=== PATIENT | female | born 1975 | race Caucasian/White ===

== ENCOUNTER 2020-04-13 16:51 | Outpatient (CLI) | payer OTHER, SELFPAY ==
--- NOTE | ~2020-04-13 | MM_ITS ---
EXAMINATION: MM screening jose g BI w patricia HISTORY: Screening mammogram TECHNIQUE: Craniocaudal and mediolateral oblique 3-D tomosynthesis images were obtained and synthetic 2-D images were generated. CAD analysis was submitted and interpreted. COMPARISON: 03/29/2019, 04/04/2018, 03/05/2017 bilateral digital screening mammogram examinations BREAST PARENCHYMAL COMPOSITION: There are scattered areas of fibroglandular density. FINDINGS: Scattered bilateral benign calcifications. There is no evidence of suspicious mass, calcifi cation, or architectural distortion to suggest malignancy in either breast. There has been no suspici ous interval change. IMPRESSION: 1. No mammographic evidence of malignancy. 2. Recommend routine screening mammography in one year. BI-RADS Category 2: Benign finding(s). Reviewed, dictated and finalized at location A. LAB
== END 2020-04-13 16:52 | disposition home or self-care (01) ==
LOC: ANHIMG 16:55
PROVIDERS: PCP Family Medicine; Visit Provider Obstetrics & Gynecology
DX: Z12.31 Encounter for screening mammogram for malignant neoplasm of breast (principal)
CPT/HCPCS: 77063; 77067

== ENCOUNTER 2021-05-15 07:38 | Outpatient (CLI) | payer OTHER, SELFPAY ==
--- NOTE | ~2021-05-15 | MM_ITS ---
EXAMINATION: MM screening [facility] BI w patricia HISTORY: Screening mammogram TECHNIQUE: Craniocaudal and mediolateral oblique 3-D tomosynthesis images were obtained and synthetic 2-D images were generated. CAD analysis was submitted and interpreted. COMPARISON: 04/13/2020, 03/29/2019 BREAST PARENCHYMAL COMPOSITION: The breasts are heterogeneously dense, which may obscure small masses . FINDINGS: There is no evidence of suspicious mass, calcification, or architectural distortion to sugg est malignancy in either breast. There has been no suspicious interval change. IMPRESSION: 1. No mammographic evidence of malignancy. 2. Recommend routine screening mammography in one year. BI-RADS Category 1: Negative Reviewed, dictated and finalized at location A. [employer]
== END 2021-05-15 07:39 | disposition home or self-care (01) ==
LOC: ANHIMG 07:40
PROVIDERS: PCP Family Medicine; Visit Provider Obstetrics & Gynecology
DX: Z12.31 Encounter for screening mammogram for malignant neoplasm of breast (principal)
CPT/HCPCS: 77063; 77067

== ENCOUNTER 2021-07-27 01:09 | Day surgery (SDC) | payer OTHER, SELFPAY ==
[2021-07-16 15:00] VITALS: BMI 25.8
[2021-07-27 06:29] VITALS: BP 101/64; PULSE 75; RESP 20; TEMP 36.3; O2SAT 100; BMI 22.3
[2021-07-27] MEDS: LACTATED RINGERS 1,000 ML 150 ML IV CONT (06:42)
--- NOTE | 2021-07-27 06:49 | P.PNAN_ITS ---
Anes - Initial Pre Proc Eval Procedure: Operation Date: 07/27/21 07:30 Proposed Procedures p Screening Colonoscopy - Carlos Henderson MD Date/Time: 07/27/21 06:49 Surgeon: Carlos Henderson MD Pre Op Diagnosis: neoplasm screening Patient Data Age: 46 Gender: F Height: 1.52 m Weight: 51.9 kg Last Vital Signs Temp 36.3 C L 07/27/21 06:29 Pulse 75 07/27/21 06:29 Resp 20 07/27/21 06:29 BP 101/64 07/27/21 06:29 Pulse Ox 100 07/27/21 06:29 Allergies Allergy/AdvReac Type Severity Reaction Status Date / Time No Known Allergies Allergy Unknown Verified 07/27/21 06:27 Home Medications Medication Instructions Recorded Confirmed Type bupropion HCl 150 mg 24 hr tablet, 150 mg PO QAM 04/09/19 07/16/21 History extended release sertraline 100 mg tablet 150 mg PO DAILY tablet 04/09/19 07/16/21 History topiramate 50 mg tablet 50 mg PO DAILY #90 tablet 04/03/21 07/16/21 Rx sumatriptan succinate 100 mg tablet See Rx Instructions .ROUTE 04/20/21 07/16/21 Rx .COMPLEX #15 tablet simvastatin 5 mg tablet See Rx Instructions .ROUTE 06/29/21 07/16/21 Rx .COMPLEX #90 tablet amitriptyline 25 mg PO HS 07/16/21 07/16/21 History Patient hx anesthesia problems: none Family hx anesthesia problems: none Results Review: All pre-operative results and documents have been reviewed as p art of the pre-operative evaluation. [facility] Surgical History Surgical History (Updated 07/27/21 @ 06:52 by Jose Marrero MD) History of section History of tonsillectomy (~1983) removed History of total hip arthroplasty Family History Family History Mother Diabetes mellitus Family history of obesity Depression Father Family history of cardiovascular disease Hypertension Family history of alcoholism Grandparent Cerebrovascular accident Malignant neoplasm of prostate Family history of malignant neoplasm of cervix Family history of malignant neoplasm of ovary Social History Social History Smoking status: Current every day smoker Alcohol intake: never Living arrangements: with family Spiritual care concerns: No Anes - Eval Final PreProcedure Day of Procedure 07/27/21 06:49 Patient weight: normal Heart: regular rate and rhythm Lungs: clear to auscultation Airway: Mallampati scale class II Neurological: alert and oriented Last oral intake: >/= 8 hours ASA classification: II Emergent: no Anesthetic plan: proceed Anesthesia type and monitoring: general GIVS Results Review: All pre-operative results and documents have been reviewed as part of the pre-operative evaluation. Informed Consent: The patient's anesthetic plan and its attendant risks and benefits were discussed with the patient/family/POA. Questions were solicited and answers provided to the satisfaction of the patient/family/POA.
--- NOTE | 2021-07-27 07:23 | PM.HPGS ---
History of Present Illness History of Present Illness Consent: Risks, benefits, and alternatives have been discussed and questions answered. Patient agrees to proceed with procedure. Chief complaint: neoplasm screening Narrative: Adalgisa Parikh is a 46 year old female here for first screening colonoscopy Review of Systems Constitutional: Constitutional: Denies headache(s) and Denies weakness Eyes: Eyes: Denies blurry vision ENT: Reports Normal hearing present, Denies headache(s) and Denies neck pain Cardiovascular: Cardiovascular: Denies chest pain and Denies dyspnea Respiratory: Respiratory: Denies dyspnea Gastrointestinal: Gastrointestinal: Reports no additional gastrointestinal complaints Genitourinary: Genitourinary: Denies dysuria Musculoskeletal: Musculoskeletal: Denies neck pain Integumentary/Breasts: Skin/Breast: Denies dry skin Neurologic: Reports Normal hearing present, Denies headache(s) and Denies weakness Psychiatric: Psychiatric: Denies anxiety Endocrine: Endocrine: Denies change in body appearance Hematologic/Lymphatic: Hematologic/Lymphatic: Denies easy bleeding Allergic/Immunologic: Allergic/Immunologic: Denies urticaria PMFSH Surgical History Surgical History (Updated 07/27/21 @ 06:52 by Jose Marrero MD) History of section History of tonsillectomy (~1983) removed History of total hip arthroplasty Family History Family History Mother Diabetes mellitus Family history of obesity Depression Father Family history of cardiovascular disease Hypertension Family history of alcoholism Grandparent Cerebrovascular accident Malignant neoplasm of prostate Family history of malignant neoplasm of cervix Family history of malignant neoplasm of ovary Social History Social History Smoking status: Current every day smoker Alcohol intake: never Living arrangements: with family Spiritual care concerns: No Meds Home Medications and Allergies Home Medications Medication Instructions Recorded Confirmed Type bupropion HCl 150 mg 24 hr tablet, 150 mg PO QAM 04/09/19 07/16/21 History extended release sertraline 100 mg tablet 150 mg PO DAILY tablet 04/09/19 07/16/21 History topiramate 50 mg tablet 50 mg PO DAILY #90 tablet 04/03/21 07/16/21 Rx sumatriptan succinate 100 mg tablet See Rx Instructions .ROUTE 04/20/21 07/16/21 Rx .COMPLEX #15 tablet simvastatin 5 mg tablet See Rx Instructions .ROUTE 06/29/21 07/16/21 Rx .COMPLEX #90 tablet amitriptyline 25 mg PO HS 07/16/21 07/16/21 History Allergies Allergy/AdvReac Type Severity Reaction Status Date / Time No Known Allergies Allergy Unknown Verified 07/27/21 06:27 Vital Signs Vital Signs - 24 hr 07/27/21 06:29 Temperature 97.3 F L Pulse Rate 75 Respiratory Rate 20 Blood Pressure 101/64 Pulse Oximetry 100 Exam Const: General: comfortable and no acute distress HENMT: General nose exam: Normal nares present Eyes: General: appearance normal, both eyes and all related structures Neck: Neck: no JVD Resp: Auscultation: clear to auscultation bilaterally Cardio: Rate: regular rate Rhythm: regular rhythm GI: Inspection: non-distended GI Palp: Yes Soft to palpation Skin: General skin exam: normal color Neuro: General: gait normal Speech: normal speech Extrem: General: normal to inspection Psych: Mental Status: mental status grossly normal Assessment and Plan Assessment and plan (1) Screening for colon cancer: Code(s): Z12.11 - Encounter for screening for malignant neoplasm of colon Status: Acute Assessment and Plan: colonoscopy
[2021-07-27 07:44] VITALS: BP 128/105; PULSE 64; RESP 11; O2SAT 98
[2021-07-27 07:54] VITALS: BP 87/52; PULSE 68; RESP 12; O2SAT 98
[2021-07-27 08:04] VITALS: BP 109/69; PULSE 60; RESP 21; O2SAT 100
== END 2021-07-27 08:15 | disposition home or self-care (01) ==
PROVIDERS: PCP Family Medicine; Visit Provider Internal Medicine Gastroenterology
PROC: 0DJD8ZZ Inspection of Lower Intestinal Tract, Via Natural or Artificial Opening Endoscopic (ICD-10-PCS; CPT 45378; principal; 2021-07-27 07:30)
DX: Z12.11 Encounter for screening for malignant neoplasm of colon (principal); K64.8 Other hemorrhoids; F17.200 Nicotine dependence, unspecified, uncomplicated
CPT/HCPCS: 45378; J2704; J7120

== ENCOUNTER 2021-10-02 15:25 | Outpatient (CLI) | payer OTHER, SELFPAY ==
--- NOTE | ~2021-10-02 | XR_ITS ---
EXAM: XR knee RT min 4V DATE: 10/02/2021 16:03 HISTORY: M25.561 - Pain in right knee . COMPARISON: None available. FINDINGS: Normal mineralization. No fracture or dislocation. No lytic or blastic lesion. Mild medial joint space narrowing. No erosion or periosteal change. Soft tissues within normal limits. IMPRESSION: Mild osteoarthritic change in the right knee. Reviewed, dictated and finalized at location K.
--- NOTE | ~2021-10-02 | XR_ITS ---
EXAM: XR lumbar spine min 4V DATE: 10/02/2021 16:03 HISTORY: M25.561 - RADIATING BACK PAIN DOWN RT LEG . COMPARISON: 02/08/2019. FINDINGS: IUD. 5 nonrib-bearing lumbar-type vertebral bodies. Pedicles intact. Normal vertebral body alignment. Vertebral body heights preserved. Severe disc space narrowing at L5-S1, with vacuum phenom enon. Bilateral pars defects at L5. No fracture or dislocation. IMPRESSION: Bilateral L5 pars defect. Severe degenerative disc disease at L5-S1. Reviewed, dictated and finalized at location K. IMPRESSION: Bilateral L5 pars defect. Severe degenerative disc disease at L5-S1 .
--- NOTE | ~2021-10-02 | US_ITS ---
EXAMINATION: US venous doppler LE RT DATE: 10/02/2021 15:50 INDICATION: M25.561 - Pain in right knee . TECHNIQUE: Grayscale images without and with compression and Doppler images of the right lower extrem ity veins were obtained. COMPARISON: None FINDINGS: The right common femoral vein, profunda (deep) femoral vein, femoral vein, popliteal vein, peroneal v ein, posterior tibial veins, gastrocnemius vein, and greater saphenous vein are patent. IMPRESSION: 1. Patent right lower extremity veins. No evidence of deep venous thrombosis. Reviewed, dictated and finalized at location K.
== END 2021-10-02 15:26 | disposition home or self-care (01) ==
PROVIDERS: PCP Family Medicine; Visit Provider Family Medicine
DX: M51.37 Other intervertebral disc degeneration, lumbosacral region (principal); M17.11 Unilateral primary osteoarthritis, right knee
CPT/HCPCS: 72110; 73564; 93971

== ENCOUNTER 2022-07-30 16:17 | Outpatient (CLI) | payer OTHER, SELFPAY ==
--- NOTE | ~2022-07-30 | MM_ITS ---
EXAMINATION: MM screening jose g BI w patricia HISTORY: Screening mammogram TECHNIQUE: Craniocaudal and mediolateral oblique 3-D tomosynthesis images were obtained and synthetic 2-D images were generated. CAD analysis was submitted and interpreted. COMPARISON: 05/15/2021, 04/13/2020, 03/29/2019 BREAST PARENCHYMAL COMPOSITION:The breasts are heterogeneously dense, which may obscure small masses. FINDINGS: No suspicious mass, calcification, or architectural distortion are identified in either césar ast to suggest malignancy. There has been no suspicious interval change. IMPRESSION: No mammographic evidence of malignancy. Recommend routine screening mammography in one year. BI-RADS Category 1: Negative Reviewed, dictated and finalized at location .
== END 2022-07-30 16:18 | disposition home or self-care (01) ==
PROVIDERS: PCP Family Medicine; Visit Provider Obstetrics & Gynecology
DX: Z12.31 Encounter for screening mammogram for malignant neoplasm of breast (principal)
CPT/HCPCS: 77063; 77067

== ENCOUNTER → 2022-09-10 15:37 | Outpatient (CLI) | payer OTHER, SELFPAY ==
--- NOTE | ~2022-09-10 | XR_ITS ---
EXAM: XR cervical spine min 6V DATE: 09/10/2022 15:55 HISTORY: R51.9 - Headache, unspecified . COMPARISON: 02/08/2019. FINDINGS: Craniocervical association and atlantoaxial joint are aligned. No prevertebral soft tissue swelling. Trace 1 mm retrolisthesis at C4-5, that transitions to a 1 mm anterolisthesis in flexion. 2 mm retrolisthesis at C5-6 that reduces slightly in flexion. Trace, 1 mm anterolisthesis at C6-7 debra t worsens in flexion and reduces in extension. Moderate disc space narrowing, uncovertebral joint hyp ertrophy, and marginal osteophytosis at C5-6. Mild multilevel facet hypertrophy. IMPRESSION: Multilevel dynamic grade 1 listheses at C4-5 through C6/7. Moderate degenerative disc disease and uncovertebral joint hypertrophy at C5-6. Reviewed, dictated and finalized at location K.
== END ==
PROVIDERS: PCP Family Medicine; Visit Provider Family Medicine
DX: R51.9 Headache, unspecified (principal); M50.322 Other cervical disc degeneration at C5-C6 level
CPT/HCPCS: 72052

== ENCOUNTER 2022-10-04 12:50 | Outpatient (CLI) | payer OTHER, SELFPAY ==
--- NOTE | ~2022-10-04 | MR_ITS ---
EXAMINATION: MR lumbar spine wo/w con DATE: 10/04/2022 14:15 INDICATION: Low back pain, unspecified. TECHNIQUE: Magnetic resonance imaging (MRI) of the lumbar spine was performed without and with 10 mL MultiHance intravenous contrast. COMPARISON: Lumbar spine MRI 04/08/2019 FINDINGS: There is 4 mm retrolisthesis of L5 on S1. Vertebral body heights are normal. There is mildl y decreased disc height at L4-L5 and moderately decreased disc height at L5-S1. The distal spinal cor d signal intensity is normal. The conus medullaris is at L1. The following disc levels are specifical ly discussed: L1-L2: The disc does not extend beyond the endplate margin. There is mild bilateral facet joint osteo arthritis. There is no neural foraminal stenosis. There is no central canal stenosis. L2-L3: The disc does not extend beyond the endplate margin. There is moderate bilateral facet joint o steoarthritis. There is no neural foraminal stenosis. There is no central canal stenosis. L3-L4: The disc does not extend beyond the endplate margin. There is moderate right and severe left f acet joint osteoarthritis. There is no neural foraminal stenosis. There is no central canal stenosis. L4-L5: There is a central extrusion. There is severe bilateral facet joint osteoarthritis. There is m ild bilateral neural foraminal stenosis. There is mild central canal stenosis. L5-S1: The disc is bulging and has an annular fissure. There is mild bilateral facet joint osteoarthr itis. There is mild bilateral neural foraminal stenosis. There is mild central canal stenosis. IMPRESSION: 1. Moderate lower lumbar spondylosis, stable from 04/08/2019. Reviewed, dictated and finalized at location A.
--- NOTE | ~2022-10-04 | MR_ITS ---
EXAMINATION: MR cervical spine wo/w con DATE: 10/04/2022 14:15 INDICATION: Neck pain. TECHNIQUE: Magnetic resonance imaging (MRI) of the cervical spine was performed without and with 10 m L MultiHance intravenous contrast. COMPARISON: Cervical spine radiographs 09/10/2022 FINDINGS: There is 2 mm retrolisthesis of C5 on C6. Vertebral body heights are normal. There is moder ately decreased disc height at C5-C6. The spinal cord signal intensity is normal. The following disc levels are specifically discussed: C2-C3: The disc does not extend beyond the endplate margin. There is no uncovertebral joint osteoarth ritis. There is moderate right and severe left facet joint osteoarthritis. There is mild left neural foraminal stenosis. There is no central canal stenosis. C3-C4: There is a central protrusion. There is no uncovertebral joint osteoarthritis. There is modera te bilateral facet joint osteoarthritis. There is no neural foraminal stenosis. There is no central c anal stenosis. C4-C5: There is a left central extrusion. There is no uncovertebral joint osteoarthritis. There is mi ld bilateral facet joint osteoarthritis. There is no neural foraminal stenosis. There is mild central canal stenosis. C5-C6: The disc is bulging. There is severe bilateral uncovertebral joint osteoarthritis. There is mi ld right facet joint osteoarthritis. There is mild bilateral neural foraminal stenosis. There is mild central canal stenosis. C6-C7: There is a central protrusion. There is mild right and moderate left uncovertebral joint osteo arthritis. There is severe right and moderate left facet joint osteoarthritis. There is mild left cathy ral foraminal stenosis. There is mild central canal stenosis. C7-T1: The disc does not extend beyond the endplate margin. There is no uncovertebral joint osteoarth ritis. There is no facet joint osteoarthritis. There is no neural foraminal stenosis. There is no caio tral canal stenosis. IMPRESSION: 1. Moderate cervical spondylosis, worst at C5-C6. Reviewed, dictated and finalized at location A.
== END 2022-10-04 12:51 ==
PROVIDERS: PCP Family Medicine; Visit Provider Nurse Practitioner
DX: M47.896 Other spondylosis, lumbar region (principal); M47.892 Other spondylosis, cervical region
CPT/HCPCS: 72156; 72158; A9577

== ENCOUNTER 2023-08-26 15:34 | Outpatient (CLI) | payer OTHER, SELFPAY ==
--- NOTE | ~2023-08-26 | MM_ITS ---
EXAMINATION: MM screening jose g BI w patricia HISTORY: Screening TECHNIQUE: Craniocaudal and mediolateral oblique 3-D tomosynthesis images were obtained and synthetic 2-D images were generated. CAD analysis was submitted and interpreted. COMPARISON: Comparison to multiple prior studies sequentially, with oldest reviewed study dated 02/15. BREAST PARENCHYMAL COMPOSITION: Dense: The breasts are heterogeneously dense, which may obscure small masses FINDINGS: There is no evidence of suspicious mass, calcification, or architectural distortion to sugg est malignancy in either breast. There has been no suspicious interval change. IMPRESSION: 1. No mammographic evidence of malignancy. 2. Recommend routine screening mammography in one year. BI-RADS Category 1: Negative Reviewed, dictated and finalized at location B.
== END 2023-08-26 15:35 | disposition home or self-care (01) ==
PROVIDERS: PCP Family Medicine; Visit Provider Obstetrics & Gynecology
DX: Z12.31 Encounter for screening mammogram for malignant neoplasm of breast (principal)
CPT/HCPCS: 77063; 77067

== ENCOUNTER 2023-09-03 09:18 | Outpatient (CLI) | payer OTHER, SELFPAY ==
--- NOTE | ~2023-09-03 | CT_ITS ---
CT brain wo con Ordering provider: Jasmin Javier MD History: 48 years Female with . chronic daily headaches . Comparison: None. Technique: CT of the head without contrast. Radiation reduction technique utilized. DLP is 524.62 mGy . FINDINGS: BRAIN PARENCHYMA AND CSF SPACES: No midline shift, mass effect or hemorrhage. The brain parenchyma a nd CSF spaces are otherwise normal. 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 VISUALIZED PARANASAL SINUSES: Well aerated. MASTOIDS: Well aerated. BONES: The bones appear intact. SOFT TISSUES: Visualized nasopharynx is normal. Superficial soft tissues are normal. IMPRESSION: No acute intracranial findings. Reviewed, dictated and finalized at location A.
== END 2023-09-03 09:19 ==
LOC: MICIMG 09:19
PROVIDERS: PCP Family Medicine; Visit Provider Student in an Organized Health Care Education/Training Program
DX: R51.9 Headache, unspecified (principal)
CPT/HCPCS: 70450

== ENCOUNTER 2023-10-13 15:42 | Outpatient (CLI) | payer OTHER, SELFPAY ==
--- NOTE | ~2023-10-13 | MR_ITS ---
EXAMINATION: MR brain/brain stem wo/w con DATE: 10/13/2023 16:21 INDICATION: Chronic daily headaches TECHNIQUE: Magnetic resonance imaging (MRI) of the brain and brainstem was performed without and with 10 mL Multihance intravenous contrast. Sequences included sagittal and axial T1-weighted SE, axial d iffusion-weighted FS SE, axial T2*-weighted GRE, axial T2-weighted FLAIR, and axial T2-weighted FSE. Postcontrast axial and coronal T1-weighted SE was obtained. Apparent diffusion coefficient (ADC) maps were created. COMPARISON: Head CT dated 09/02/2023 FINDINGS: There are no areas of restricted diffusion to suggest acute infarction. No intracranial hemorrhage or abnormal intracranial mass lesion. There are a few scattered small foci of nonspecific increased T2- weighted signal intensity in the cerebral white matter, predominantly involving the deep and perivent ricular white matter which within normal limits for age and likely sequela of chronic small vessel is chemic disease. There are no intraparenchymal signal abnormalities seen on the other pulse sequences. The ventricles are symmetric and normal in size. There are no abnormal extra-axial fluid collections . Flow voids are seen in the cerebral arteries on the T2-weighted sequences consistent with their exp ected patency. Visualized orbits and soft tissues are unremarkable. There are no areas of abnormal en hancement on the post contrast images. IMPRESSION: 1. Normal for age brain MR with a few scattered small foci of nonspecific white matter T2 hyperintens ity likely sequela of chronic small vessel ischemic disease. Reviewed, dictated and finalized at location A. IMPRESSION: 1. Normal for age brain MR with a few scattered small foci of nonspecific white matter T2 hyperintensity likely sequela of chronic small vessel ischemic disea se.
== END 2023-10-13 15:43 ==
PROVIDERS: PCP Family Medicine; Visit Provider Student in an Organized Health Care Education/Training Program
DX: E34.8 Other specified endocrine disorders (principal); R90.82 White matter disease, unspecified
CPT/HCPCS: 70553; A9577

== ENCOUNTER 2024-11-02 16:22 | Outpatient (CLI) | payer OTHER, SELFPAY ==
--- NOTE | ~2024-11-02 | MM_ITS ---
EXAMINATION: MM screening [facility] BI w patricia HISTORY: Screening mammogram TECHNIQUE: Craniocaudal and mediolateral oblique 3-D tomosynthesis images were obtained and synthetic 2-D images were generated. CAD analysis was submitted and interpreted. COMPARISON: 08/26/2023, 07/30/2022, 05/15/2021 BREAST PARENCHYMAL COMPOSITION:Not Dense. There are scattered areas of fibroglandular density. FINDINGS: No suspicious mass, calcification, or architectural distortion are identified in either breast to suggest malignancy. There has been no suspicious interval change. IMPRESSION: No mammographic evidence of malignancy. Recommend routine screening mammography in one year. BI-RADS Category 1: Negative Reviewed, dictated and finalized at location .
--- OUTSIDE RECORDS SUMMARY | 2024-11-02 16:35 | XMS_ITS | Encounter Summary ---
Author Organization [facility] Address [address] [place] [address] Phone Care Team Providers Care Incubator Machine Operator Name Role Phone Archana Castellano DO Primary Care Provider [phone] Encounter Details Date Type Department Care Team (Late st Contact Info) Description 03/01/2021 Orders Only [facility]R [phone] Scanning, Provider Social History Tobacco Use Types Packs/Day Years Used Date Smoking Tobacco: Former Cigarettes 0.3 20 1 - 12/31/2019 Smokeless Tobacco: Never Alcohol Use Standard Drinks/Week Comments Not Currently 0 (1 standard drink = 0.6 oz pur e alcohol) recovering alcoholic Comments No Sex and Gender Information Value Date Recorded Sex Assigned at Not on file Legal Sex Female 7:31 PM [employer] Gender Identity Not on file Sexual Orientation Not on file documented as of this encounter Plan of Treatment Not on file documented as of this encounter Procedures Procedure Name Priority Date/Time Associated Diagnosis Comments SCAN - RADIOLOGY/IMAGING 03/01/2021 documented in this encounter Results * SCAN - RADIOLOGY/IMAGING (03/01/2021) Anatomical Region Laterality Modality Other us Provider Scanning Final Result documented in this encounter Visit Diagnoses Not on filedocumented in this encounter Care Teams Incubator Machine Operator Relationship Specialty Start Date End Date Archana Castellano DO PCP - General 10/21/19 documented as of this encounter
--- OUTSIDE RECORDS SUMMARY | 2024-11-02 16:35 | XMS_ITS | Clinical Summary ---
Author Organization [facility] Address [address] [place] [address] Care Team Providers Care Taping Foreman Name Role Phone MaggieyessicaArchana royal Primary Care Provider [phone] Allergies No known active allergies Medications amitriptyline (ELAVIL) 25 mg tabletIndicatio ns:Migraine Prevention Take 25 mg by mouth nightly Active SUMAtriptan (IMITREX) 100 mg tabletIndicatio ns:Migraine Take 100 mg by mouth as needed Active sertraline (ZOLOFT) 100 mg tabletIndicatio ns:Anxiety with Depression Take 150 mg by mouth every morning 0 Active buPROPion XL (WELLBUTRIN XL) 150 mg 24 hr tabletIndicatio ns:Anxiety with Depression Take 150 mg by mouth every morning 0 Active simvastatin (ZOCOR) 5 mg tablet Take 5 mg by mouth nightly 0 Active levonorgestreL (MIRENA) IUD 1 each by intrauterine route once Active apixaban (ELIQUIS) 2.5 mg tablet Take 1 tablet (2.5 mg total) by mouth 2 (two) times a day 60 tablet 0 Active celecoxib (CeleBREX) 200 mg capsuleIndicati ons:Osteoarthri tis,Postoperati ve Acute Pain Take 1 tablet twice daily after surgery until prescription is finished. You should already have this prescription at home. Start on morning of 03/04/2020. 10 capsule 0 Active senna-docusate (PERICOLACE) 8.6-50 mgIndications:c onstipation Take 2 tablets by mouth 2 (two) times a day May increase to 4 tablets twice daily if needed. HOLD medication for diarrhea. 80 tablet 1 0 Active Additional Information Patient not taking.Reported on 02/20/2021 methylPREDNISol one (MEDROL DOSEPACK) 4 mg Dosepack FOLLOW PACKAGE DIRECTIONS 1 Active ketorolac (TORADOL) 10 mg tablet Take 10mg three times a day for 7 days. 21 tablet 1 Active Additional Information Patient not taking.Reported on 02/20/2021 amoxicillin (amoxicillin) 500 mg tablet/capsuleI ndications:Prop hylaxis, Medical TAKE 4 PILL 1 HOUR BEFORE DENTAL APPOINTMENT. 12 tablet/capsu le 2 1 Active ALPRAZolam (XANAX) 0.25 mg tablet TAKE 1 TABLET BY MOUTH NEEDED FOR 1 DAY PRIOR TO DENTIST APPOINTMENT 1 Active Active Problems Problem Noted Date Diagnosed Date HLD (hyperlipidemia) 02/29/2020 Primary osteoarthritis of right hip 12/02/2019 Overview (12/02/2019): Added automatically from request for surgery [id number] Immunizations Immunization Administration Dates Next Due Influenza, Quadrivalent, Spl it, Preservative Free, Intramuscular 01/01/2018 Influenza, Trivalent, Split, Preservative Free, Intradermal 12/16/2018 Tdap 12/08/2018 Surgical History Surgery Date Site/Laterality Comments SECTION TONSILLECTOMY FLUORO GUIDED INJECTION HIP RIGHT 10/21/2019 Right JOINT REPLACEMENT HIP SURGERY 03/03/2020 Right Total hip Medical History Medical History Date Comments Depression Anxiety Migraines Hypercholesteremia PONV (postoperative nausea and vomiting) Family History Medical History Relation Name Comments Stroke Neg Hx Social History Tobacco Use Types Packs/Day Years Used Date Smoking Tobacco: Former Cigarettes 0.3 20 1 - 12/31/2019 Smokeless Tobacco: Never Alcohol Use Standard Drinks/Week Comments Not Currently 0 (1 standard drink = 0.6 oz pur e alcohol) recovering alcoholic Comments No Sex and Gender Information Value Date Recorded Sex Assigned at Not on file Legal Sex Female 7:31 PM MANAGEMENT TRAINEE PROGRAM STORES Gender Identity Not on file Sexual Orientation Not on file Obstetrics History Last Filed Vital Signs Vital Sign Reading Time Taken Comments Blood Pressure 103/60 03/04/2020 4:10 AM MANAGEMENT TRAINEE PROGRAM STORES Pulse 81 03/04/2020 4:10 AM MANAGEMENT TRAINEE PROGRAM STORES Temperature 36.7 C (98.1 F) 03/04/2020 4:10 AM MANAGEMENT TRAINEE PROGRAM STORES Respiratory Rate 16 03/04/2020 4:10 AM MANAGEMENT TRAINEE PROGRAM STORES Oxygen Saturation 98% 03/04/2020 4:10 AM MANAGEMENT TRAINEE PROGRAM STORES Inhaled Oxygen Concentration - - Weight 57.1 kg (125 lb 12.8 oz) 02/20/2021 3:16 PM MANAGEMENT TRAINEE PROGRAM STORES Height 157.5 cm (5' 2) 02/20/2021 3:16 PM MANAGEMENT TRAINEE PROGRAM STORES Body Mass Index 23.01 02/20/2021 3:16 PM MANAGEMENT TRAINEE PROGRAM STORES Plan of Treatment Not on file Medical Devices Implanted Type Area Psychological Science Professor Device Identifier Shelf Expiration Date Model / Serial / Lot [employer] [id number] Mentum 47mm Press Fit Femoral Proximal Cup Acetabular - Sna - [id number] Implanted:Qty: 1 on 03/03/2020 by Papa Fried MD at [facility] Other - see comments Right: Hip [employer] [id number] 01/15/2024 [id number] / NA / [id number] [employer] [id number] Actis Collared Hip 02/27 4 Standard Offset Stem Femoral - Sna - [id number] Implanted:Qty: 1 on 03/03/2020 by Papa Fried MD at [facility] Other - see comments Right: Hip [employer] [id number] 01/14/2030 [id number] / NA / [id number] [employer] [id number] Articul/Tin 28mm Cementless Hip +1.5mm 02/27 Taper Head Femoral Latex Free - Sna - [id number] Implanted:Qty: 1 on 03/03/2020 by Papa Fried MD at [facility] Other - see comments Right: Hip [employer] 01/14/2025 [id number] / NA / [id number] [employer] [id number] Mentum 47mm 28mm Femoral Proximal Liner Acetabular - Sna - [id number] Implanted:Qty: 1 on 03/03/2020 by Papa Fried MD at [facility] Other - see comments Right: Hip [employer] [id number] 11/14/2024 [id number] / NA / [id number] Insurance [employer] [facility] [id number] [facility] [id number] Advance Directives For more information, please contact: [phone] * Full Code (Latest Code Status on File) Date Activated Date Inactivated Comments 03/03/2020 11:23 AM 03/04/2020 5:58 PM Care Teams Taping Foreman Relationship Specialty Start Date End Date Archana Castellano DO PCP - General 10/21/19
--- OUTSIDE RECORDS SUMMARY | 2024-11-02 16:35 | XMS_ITS | Encounter Summary ---
Author Organization [facility] Address [address] [place] [address] Care Team Providers Care Binder Technician Name Role Phone Unavailable Primary Care Provider Unavailabl e Encounter Details Date Type Department Care Team (Late st Contact Info) Description 06/29/2024 Lab Requisition [facility] - DermPath Lab [address], [facility] [place] [id number] Shruthi Jean MD [address] [place] [address] Social History Tobacco Use Types Packs/Day Years Used Date Smoking Tobacco: Every Day Smokeless Tobacco: Never Comments No Sex and Gender Information Value Date Recorded Sex Assigned at Not on file Legal Sex Female 8:01 PM CDT Gender Identity Not on file Sexual Orientation Not on file documented as of this encounter Plan of Treatment Not on file documented as of this encounter Procedures Procedure Name Priority Date/Time Associated Diagnosis Comments DERMATOPATHOLOGY Routine 06/29/2024 3:06 PM CDT documented in this encounter Results * DERMATOPATHOLOGY (06/29/2024 3:06 PM CDT) Case Report Dermatopathology Report Case: [id number] Authorizing Provider: Shruthi Jean MD Collected: 06/29/2024 03:06 PM Ordering Location: [facility] - Received: 06/30/2024 04:39 PM DermPath Lab Pathologist: Bere Del Angel MD Specimen: Skin, right lateral cheek 3:49 PM CDT DERMATOPATHOLOGY LABORATORY Final Diagnosis Specimen A. SKIN, right lateral cheek: SOLAR LENTIGO (L81.4) (see microscopic description) 3:49 PM CDT DERMATOPATHOLOGY LABORATORY at 1549 CDT Clinical History Nevus vs lentigo R/O MM 3:49 PM CDT DERMATOPATHOLOGY LABORATORY Gross Description Specimen A: Received is one formalin filled container labeled with the patient's name and designated right lateral cheek. The specimen consists of a shave biopsy measuring 9x9x1 mm. Jar 0. 3:49 PM CDT DERMATOPATHOLOGY LABORATORY Microscopic Description Specimen A. SKIN, right lateral cheek: There is orthokeratosis. There is a slight increase in epidermal thickness with lentiginous buds of hyperpigmented keratinocytes. The number of melanocytes, highlighted by MART-1/Melan-A immunohistochemical staining, is only mildly increased. In the dermis, there is basophilic degeneration of elastic fibers. 3:49 PM CDT DERMATOPATHOLOGY LABORATORY Disclaimer An external and internal positive and negative controls are appropriate for the histochemical, immunohistochemical and immunofluorescence stain(s) in this case (if any), except where stated explicitly. The performance characteristics of the stain(s) cited in this report were developed and its performance characteristic determined by the Dermatopathology Laboratory at [facility], directed by Dr. Avtar Banks. These tests need not be, and therefore are not, approved by the [place] Food and Drug Administration. The tests are used for clinical purposes. Billing Codes Specimen Charges Stain Charges 07971 1 93329 1 3:49 PM CDT DERMATOPATHOLOGY LABORATORY Embedded Images 3:49 PM CDT DERMATOPATHOLOGY LABORATORY Pathology/Cytolo gy TISSUE SPECIMEN FROM SKIN / Unknown 06/29/2024 3:06 PM CDT 06/30/2024 4:39 PM CDT Shruthi Jean MD LAB - PATHOLOGY/CYTOLOGY OR DERABLES Final Result DERMATOPATHOLOGY LABORATORY [facility] - Department of Dermatology [address] [phone] documented in this encounter Visit Diagnoses Not on filedocumented in this encounter
--- OUTSIDE RECORDS SUMMARY | 2024-11-02 16:35 | XMS_ITS | Clinical Summary ---
Author Organization [facility] Address [address] [place] [address] Care Team Providers Care Auto Battery Builder Name Role Phone Unavailable Primary Care Provider Unavailabl e Source Comments [facility],non-owned Affiliates and Associated Physician Practices is amultiple site organization consisting of ambulatory clinics and hospital sitesin [place], [place], [place] and [place]. This disclosure is being madepursuant to the Care Everywhere program and may not contain all information available regarding this patient. Last updated 17.[facility] Allergies No known active allergies Medications * Be aware that medications may not be up to date on this document. Alwaysverify current medications with the patient. Sertraline HCl (ZOLOFT PO) Active buPROPion HCl (WELLBUTRIN PO) Acti ve amitriptyline (ELAVIL) 150 MG tablet Take 50 mg by mouth at bedtime Active SIMVASTATIN PO Activ e SUMAtriptan Succinate (IMITREX PO) Active Social History Tobacco Use Types Packs/Day Years Used Date Smoking Tobacco: Every Day Smokeless Tobacco: Never Comments No Sex and Gender Information Value Date Recorded Sex Assigned at Not on file Legal Sex Female 8:01 PM CDT Gender Identity Not on file Sexual Orientation Not on file Last Filed Vital Signs Vital Sign Reading Time Taken Comments Blood Pressure 110/78 02/25/2019 10:24 AM HEALTH ADVISOR Pulse 81 02/25/2019 10:24 AM HEALTH ADVISOR Temperature 36.9 C (98.5 F) 02/25/2019 10:24 AM HEALTH ADVISOR Respiratory Rate 16 02/25/2019 10:24 AM HEALTH ADVISOR Oxygen Saturation 96% 02/25/2019 10:24 AM HEALTH ADVISOR Inhaled Oxygen Concentration - - Weight 54.4 kg (120 lb) 02/25/2019 10:24 AM HEALTH ADVISOR Height 152.4 cm (5') 02/25/2019 10:24 AM HEALTH ADVISOR Body Mass Index 23.44 02/25/2019 10:24 AM HEALTH ADVISOR Plan of Treatment Health Maintenance Due Date Last Done Comments COLOGUARD (AGES 45-75) - COL ON CA SCREENING 1973 COLON MONITORING 1973 COLONOSCOPY - COLON CA SCREENING 1973 CT COLONOGRAPHY - COLON CA SCREENING 1973 Colorectal Cancer Screening 1973 FIT - COLON CA SCREENING 1973 FLEX SIG - COLON CA SCREENING 1973 MAMMOGRAM 1973 HIV SCREENING 1988 HEPATITIS C SCREENING 04/12/1991 DTAP/TDAP/TD VACCINES (1 - Tdap) 1992 HEPATITIS B VACCINE (1 of 3 - 19+ 3-dose series) 1992 PNEUMOCOCCAL VACCINE 50+ (1 of 2 - PCV) 1992 PAP SMEAR 1994 ZOSTER VACCINE (1 of 2) 2023 COVID-19 VACCINE (1 - 2023-2 5 season) 2023 DEPRESSION SCREENING 03/17/2024 INFLUENZA VACCINE (#1) 2024 HIB VACCINE Aged Out No longer eligi ble based on patient's age to complete this topic HPV VACCINE Aged Out No longer eligi ble based on patient's age to complete this topic MENINGOCOCCAL (Group B) VACC INE SHARED DECISION-MAKING Aged Out No longer eligibl e based on patient's age to complete this topic MENINGOCOCCAL GROUPS A/C/Y/W VACCINE Aged Out No longer eligible b ased on patient's age to complete this topic Insurance [employer]
--- OUTSIDE RECORDS SUMMARY | 2024-11-02 16:35 | XMS_ITS | Clinical Summary ---
Author Organization [facility] Address [address] [place] [address] Care Team Providers Care Survey Operations Director Name Role Phone Unavailable Primary Care Provider Unavailabl e Medications amitriptyline (ELAVIL) 25 mg tablet 2 Active buPROPion HCL (WELLBUTRIN XL) 150 mg Extended Release 24 hour tablet bupropion HCl XL 150 mg 24 hr tablet, extended release 0 Active cyclobenzaprine (FLEXERIL) 10 mg tablet TAKE 1 TABLET BY MOUTH THREE TIMES DAILY NEEDED FOR MUSCLE SPASM 2 Active naproxen (NAPROSYN) 500 mg tablet TAKE 1 TABLET BY MOUTH TWICE DAILY NEEDED FOR PAIN 2 Active sertraline (ZOLOFT) 100 mg tablet TAKE 1 AND 1/2 TABLETS BY MOUTH EVERY DAY IN THE MORNING 2 Active sertraline (ZOLOFT) 50 mg tablet every 24 hours. Active SUMAtriptan (IMITREX) 100 mg tablet TAKE 1 TABLET BY MOUTH 1 TIME FOR HEADACHE DIRECTED. 2 Active topiramate (TOPAMAX) 50 mg tablet Take 50 mg by mouth daily. Patient reports change twice a day 2 Active topiramate (TOPAMAX) 25 mg tablet 2 Active Simvastatin, Bulk, 100 % Powder Take by mouth. Activ e Active Problems Problem Noted Date Diagnosed Date Degeneration of lumbar intervertebral disc 11/08 Other spondylosis with radiculopathy, lumbar reg ion 11/08/2021 Cigarette smoker 11/08/2021 Social History Tobacco Use Types Packs/Day Years Used Date Smoking Tobacco: Former Cigarettes Tobacco Cessation:Counseling Given: Not Answered Comments Unknown Sex and Gender Information Value Date Recorded Sex Assigned at Not on file Legal Sex Female 3:55 PM CDT Gender Identity Not on file Sexual Orientation Not on file Last Filed Vital Signs Vital Sign Reading Time Taken Comments Blood Pressure 116/64 03/12/2022 11:00 AM BULK INTAKE WORKER Pulse 92 03/12/2022 11:00 AM BULK INTAKE WORKER Temperature - - Respiratory Rate - - Oxygen Saturation 97% 03/12/2022 11: 00 AM BULK INTAKE WORKER Inhaled Oxygen Concentration - - Weight 56.6 kg (124 lb 12.8 oz) 022 11:00 AM BULK INTAKE WORKER Height 153.7 cm (5' 0.5) 11/08/2021 2:29 PM CDT Body Mass Index 23.97 11/08/2021 2:29 PM CDT Plan of Treatment Health Maintenance Due Date Last Done Comments HEPATITIS B VACCINES (1 of 3 - 19+ 3-dose series) 1992 HPV/Cotest (21-29) 1994 CERVICAL CANCER SCREENING 2003 HPV/Cotest (30-65) 2003 PAP SMEAR 2003 BREAST CANCER SCREENING 2013 COLORECTAL SCREENING 2018 Colorectal Cancer Screening 2018 FIT-DNA Q 3 years 2018 FIT/FOBT Q 1 year 2018 Flex Sig/CT Colonography Q 5 years 2018 ZOSTER VACCINE (1 of 2) 2023 INFLUENZA VACCINE (#1) 2024 12/16/2018, 2017 DTAP/TDAP/TD VACCINES (2 - Td or Tdap) 12/08/2028 Insurance BENEFIT PLANS Member Subscriber Plan / Payer (Ef fective 2024-Present) Name:Adalgisa Parikh Relation to Subscriber:Self Name:Adalgisa Parikh Payer ID:Not on file Group ID:Not on file Type:HMO Address: [facility] [id number] [place] [phone]
--- OUTSIDE RECORDS SUMMARY | 2024-11-02 16:35 | XMS_ITS | Patient Health Record ---
Author Organization [facility] Address [address] [place] [address] Care Team Providers Care City Dispatcher Name Role Phone Archana Castellano DO Primary Care Provider Unavailab Marlen Lazar Unavailable [phone] Allergies No Known Allergies Reason For Referral No Information Medications Medication SIG (Take, Route, Frequency, Duration) Notes Start Date End Date Status buPROPion HCl ER (XL) 150 MG Tablet Extended Release 24 Hour 1 tablet Oral Once a day; Duration: 90 days Active hydrOXYzine HCl 10 MG Tablet 1 tablet Oral twice a day; Duration: 90 days As needed Active Levothyroxine Sodium 50 MCG Tablet TAKE 1 TABLET BY MOUTH DAILY Oral; Duration: 90 Days Active Qulipta 60 MG Tablet TAKE 1 TABLET DAILY Oral; Duration: 90 Days Active Simvastatin 40 MG Tablet TAKE 1 TABLET DAILY Oral; Duration: 90 Days Active Sertraline HCl 100 MG Tablet 2 tablets Oral Once a day; Duration: 90 days Active Topiramate 100 MG Tablet Oral 07/08/2023 Active Sertraline HCl 100 MG Tablet TAKE 2 TABLETS ONCE DAILY (DISCONTINUE 150 MG DOSE); Duration: 90 Active Amitriptyline HCl 25 MG Tablet Oral 07/08/2023 Active Ubrelvy 100 MG Tablet Oral *Reorder from [facility] for eRx and Interaction Alerts* 07/08/2023 Not-Taking KYLEENA 17.5 MCG/24 HR (UP TO 5 YEARS) 19.5 MG INTRAUTERINE DEVICE *Reorder from [facility] for eRx and Interaction Alerts* 07/08/2023 Active Xanax 0.25 MG Tablet Oral 07/08/2023 Not-Taking Nortriptyline HCl 25 MG Capsule TAKE 1 CAPSULE DAILY AT BEDTIME Oral; Duration: 90 Days Active Simvastatin 5 MG Tablet Oral 07/08/2023 Not-Taking Topiramate 25 MG Tablet TAKE 3 TABLETS TWICE A DAY Oral; Duration: 90 Days Active Naproxen 500 MG Tablet Oral 07/08/2023 Not-Taking SUMAtriptan Succinate 100 MG Tablet TAKE 1 TABLET BY MOUTH DAILY NEEDED FOR HEADACHE Oral; Duration: 25 Days Active Immunizations Vaccine Route Administration Date Status Comme nts Influenza (split), seasonal, intradermal, preservative free Unknown 12/16/2018 Administered Influenza virus vaccine, quadrivalent (IIV4), split virus, 0.25 mL dosage Unknown 01/12/2018 Administered Influenza virus vaccine, quadrivalent (IIV4), split virus, 0.25 mL dosage Unknown 12/15/2018 Administered Influenza virus vaccine, quadrivalent (IIV4), split virus, 0.25 mL dosage Unknown 12/20/2020 Administered Moderna Covid-19 Vaccine 1st dose Unknown 05/03/2020 Ad ministered Moderna Covid-19 Vaccine 1st dose Unknown 06/05/2020 Ad ministered Moderna Covid-19 Vaccine 1st dose Unknown 02/26/2021 Ad ministered Novel [id number], preservative free Unknown 01/01/2018 Administered Tdap Unknown 03/17/2009 Administered Tdap Unknown 12/08/2018 Administered Social History Tobacco Use: Social History Observation Description Date Details (start date - stop date) Unknown Sex Assigned At : Social History Observation Description Sex Assigned At Female Social History Miscellaneous: Social Info Question Answer Notes Advance Care Planning Are you your own decision-maker Yes Do you have Power of Otr Truck Driver for Health or [facility]? No Sexual History: Social Info Question Answer Notes Sexual History Had sex in the past 12 months (vaginal, oral, or anal)? Yes with Men only Household: Social Info Question Answer Notes Household Marital status: Number of adults in household: 2 Number of children in household: 2 Level of education: professional schools/Masters /PhD Marital status of the child's parents: With whom does the child live? with both parents Any household tobacco use? Yes Who? Any household pets? Yes dog and cat Drug/Alcohol: Social Info Question Answer Notes Drugs Have you used drugs other than those for medical reasons in the past 12 months? No AUDIT-C (Standard) Did you have a drink containing alcohol in the past year? No Points 0 Interpretation Negative Caffeine Intake: 2-3 cups per day Tobacco Use: Social Info Question Answer Notes Tobacco Control (Standard) Tobacco use: Uses tobacco in other forms Additional Details Category Social Info Options Details Migrated Social History Migrated Social History Alcohol Intake: None 05/18/2018,Tobacco Years: Former smoker 03/28/2022 Drug/Alcohol: Do you smoke marijuana? Denies Do you drink alcohol? No Problems Problem Type SNOMED Code ICD Code Onset Dates Problem Status W/U Status Risk Notes Problem Mild recurrent major depression (00590354) Major depressive disorder, recurrent, mild (F33.0) 07/08/19 Active confirmed Problem Generalized anxiety disorder (92539490) Generalized anxiety disorder (F41.1) 07/08/19 Active confirmed Problem Primary insomnia (7805479) Primary insomnia (F51.01) 07/08/19 Active confirmed Problem Screening for cardiovascular system disease (929555846) Encounter for screening for cardiovascular disorders (Z13.6) Active confirmed Problem Long-term current use of drug therapy (946093065) Other terminal superintendent (current) drug therapy (Z79.899) 07/08/19 Active confirmed Problem Depression Screening (479672377) Encounter for screening for depression (Z13.31) Active confirmed Problem Tobacco use (956750906) Nicotine use (Z72.0) Active confirmed Vital Signs Heart Rate 91 /min 10/07/2024 Respiratory Rate 16 /min 07/13/2024 Height-cm 152.40 cm 10/07/2024 Blood pressure diastolic 81 mm Hg 10/07/2024 Weight-kg 51.26 kg 10/07/2024 Height 60.00 in 10/07/2024 Blood pressure systolic 122 mm Hg 10/07/2024 Weight 113 lbs 10/07/2024 BMI 22.07 kg/m2 10/07/2024 [facility]counters [facility] [address] [facility] [address] [address] 12/19/2023 Marlen Ko Major depressive disorder, recurrent, mild F33.0 ; Generalized anxiety disorder F41.1 ; Primary insomnia F51.01 ; Other shelter (current) drug therapy Z79.899 and Tobacco use Z72.0 [facility] [place] [address] [facility] [address] [place] [address] 03/19/2024 Marlen Ko Major depressive disorder, recurrent, mild F33.0 ; Generalized anxiety disorder F41.1 ; Primary insomnia F51.01 ; Other shelter (current) drug therapy Z79.899 and Tobacco use Z72.0 [facility] [address] [facility] [address] [place] [address] 06/17/2024 Marlen Ko Encounter for screen ing for depression Z13.31 ; Nicotine use Z72.0 ; Major depressive disorder, recurrent, mild F33.0 ; Generalized anxiety disorder F41.1 ; Primary insomnia F51.01 ; Other shelter (current) drug therapy Z79.899 and Encounter for screening for cardiovascular disorders Z13.6 [facility] [address] [facility] [address] [place] [address] 07/13/2024 Marlen Ko Nicotine use Z72.0 ; Encounter for screening for depression Z13.31 ; Encounter for screening for cardiovascular disorders Z13.6 ; Major depressive disorder, recurrent, mild F33.0 ; Generalized anxiety disorder F41.1 ; Primary insomnia F51.01 and Other shelter (current) drug therapy Z79.899 [facility] [address] [address] 10/07/2024 Marlen Therdamian Nicotine use Z72.0 ; Encounter for screening for depression Z13.31 ; Encounter for screening for cardiovascular disorders Z13.6 ; Major depressive disorder, recurrent, mild F33.0 ; Generalized anxiety disorder F41.1 ; Primary insomnia F51.01 and Other terminal superintendent (current) drug therapy Z79.899 [facility] [place] [address] [facility] [address] [address] 12/17/2023 Marlen Ko Generalized anxiety disorder F41.1 Assessments Encounter Date Diagnosis (ICD Code) Assessment Notes Treatment Notes Treatment Clinical Notes Section Notes 12/17/2023 Generalized anxiety disorder (ICD-10 - F41.1) 12/19/2023 Major depressive disorder, recurrent, mild (ICD-10 - F33.0) Preventing Depression From Coming Back: Care Instructions material was published, Depression Treatment: Care Instructions material was published, Seasonal Affective Disorder: Care Instructions material was published 1. Recurrent major depressive episodes, mild -Wellbutrin XL [address] [facility] educated on light box for seasonal effective d/o educated on light box therapy and excise- uses light box Medication Management and Follow-Up- Plan:- Schedule follow-up appointments every 2-3 months to monitor the patient's response to the medication regimen.- Reinforce the importance of avoiding recreational drug use due to potential neurotoxicity and interactions with prescribed medications. 2. Generalized anxiety disorder - Sertraline 150 mg daily Wellbutrin XL 150 mg daily Vistaril 10 mg daily for anxiety as needed educated on rx no control substance by [facility]- educated on all medications, benefits, side effects and risk, and educated on depression, anxiety, and mood d/o and educated on compliance of medications, appointment's, continue therapy discussion with patient about course of treatment and patient instructions. 3. Primary insomnia -Melatonin OTC 4. tobacco use- vaping Do not smoke. Nicotine and other chemicals in cigarettes and cigars can cause lung damage. Ask your healthcare provider for information if you currently smoke and need help to quit. E-cigarettes or smokeless tobacco still contain nicotine. Talk to your healthcare provider before you use these products. education on decrease to stopping nicotine products and stop smoking hotline given 5.. Long-term drug therapy - NO CONTROL SUBTANCE WITH CANNABIS FROM [facility] - reported not using cannabis hx recovery 12/19/2023 Generalized anxiety disorder (ICD-10 - F41.1) Learning About Generalized Anxiety Disorder material was published, Generalized Anxiety Disorder: Care Instructions material was published, Learning About Anxiety Disorders material was published 1. Recurrent major depressive episodes, mild -Wellbutrin XL [address] [facility] educated on light box for seasonal effective d/o educated on light box therapy and excise- uses light box Medication Management and Follow-Up- Plan:- Schedule follow-up appointments every 2-3 months to monitor the patient's response to the medication regimen.- Reinforce the importance of avoiding recreational drug use due to potential neurotoxicity and interactions with prescribed medications. 2. Generalized anxiety disorder - Sertraline 150 mg daily Wellbutrin XL 150 mg daily Vistaril 10 mg daily for anxiety as needed educated on rx no control substance by [facility]- educated on all medications, benefits, side effects and risk, and educated on depression, anxiety, and mood d/o and educated on compliance of medications, appointment's, continue therapy discussion with patient about course of treatment and patient instructions. 3. Primary insomnia -Melatonin OTC 4. tobacco use- vaping Do not smoke. Nicotine and other chemicals in cigarettes and cigars can cause lung damage. Ask your healthcare provider for information if you currently smoke and need help to quit. E-cigarettes or smokeless tobacco still contain nicotine. Talk to your healthcare provider before you use these products. education on decrease to stopping nicotine products and stop smoking hotline given 5.. Long-term drug therapy - NO CONTROL SUBTANCE WITH CANNABIS FROM [facility] - reported not using cannabis hx recovery 03/19/2024 Major depressive disorder, recurrent, mild (ICD-10 - F33.0) Preventing Depression From Coming Back: Care Instructions material was published, Depression Treatment: Care Instructions material was published, Seasonal Affective Disorder: Care Instructions material was published 1. Recurrent major depressive episodes, mild -Wellbutrin XL [address] [facility] educated on light box for seasonal effective d/o educated on light box therapy and excise- uses light box Medication Management and Follow-Up- Plan:- Schedule follow-up appointments every 2-3 months to monitor the patient's response to the medication regimen.- Reinforce the importance of avoiding recreational drug use due to potential neurotoxicity and interactions with prescribed medications. 2. Generalized anxiety disorder - Sertraline 150 mg daily Wellbutrin XL 150 mg daily Vistaril 10 mg daily for anxiety as needed educated on rx no control substance by [facility]- educated on all medications, benefits, side effects and risk, and educated on depression, anxiety, and mood d/o and educated on compliance of medications, appointment's, continue therapy discussion with patient about course of treatment and patient instructions. 3. Primary insomnia -Melatonin OTC 4. tobacco use- vaping Do not smoke. Nicotine and other chemicals in cigarettes and cigars can cause lung damage. Ask your healthcare provider for information if you currently smoke and need help to quit. E-cigarettes or smokeless tobacco still contain nicotine. Talk to your healthcare provider before you use these products. education on decrease to stopping nicotine products and stop smoking hotline given 5. elevted blood pressure educated on healthy b/p 120/80 monitor b/p at home refer to PCP, Urgent care/ER heart healthy diet and excise limit salt intake limit soda intake and caffiene increase water 6. Long-term drug therapy - NO CONTROL SUBTANCE WITH CANNABIS FROM [facility] - reported not using cannabis hx recovery 06/17/2024 Encounter for screening for depression (ICD-10 - Z13.31) 1. depression- reported having more depression and anxiety -Wellbutrin XL 150 mg daily Increase Sertraline 200 mg daily for increase depression and anxiety labs scheduled next with EPIDEMIOLOGIST and also check hormone had thyroid checked [facility] educated on light box for seasonal effective d/o educated on light box therapy and excise- Medication Management and Follow-Up- Plan:- Schedule follow-up appointments every 2-3 months to monitor the patient's response to the medication regimen.- Reinforce the importance of avoiding recreational drug use due to potential neurotoxicity and interactions with prescribed medications. 2. Generalized anxiety disorder - Increase Sertraline 200 mg daily for increase depression and anxiety Wellbutrin XL 150 mg daily Vistaril 10 mg daily to twice a day for anxiety as needed educated on rx no control substance by [facility]- educated on all medications, benefits, side effects and risk, and educated on depression, anxiety, and mood d/o and educated on compliance of medications, appointment's, continue therapy discussion with patient about course of treatment and patient instructions. 3. Primary insomnia -Melatonin OTC 4. tobacco use- vaping Do not smoke. Nicotine and other chemicals in cigarettes and cigars can cause lung damage. Ask your healthcare provider for information if you currently smoke and need help to quit. E-cigarettes or smokeless tobacco still contain nicotine. Talk to your healthcare provider before you use these products. education on decrease to stopping nicotine products and stop smoking hotline given Smoking Education Do not smoke. Nicotine and other chemicals in cigarettes and cigars can cause lung damage. Ask your healthcare provider for information if you currently smoke and need help to quit. E-cigarettes or smokeless tobacco still contain nicotine. Talk to your healthcare provider before you use these products. education on decrease to stopping nicotine products and stop smoking hotline given Quit - Yes [place] Tobacco Quitline Call a Smoking Quitline The National [employer] [place]'s Smoking Quitline, (5-934-18E-QUIT) Smokefree.gov, which connects you with your State's Quitline, (3-335-BYSEBFQ) Veterans Smoking Quitline, (9-380-HDFGVUF 5. elevted blood pressure educated on healthy b/p 120/80 monitor b/p at home refer to PCP, Urgent care/ER heart healthy diet and excise limit salt intake limit soda intake and caffiene increase water 6. Long-term drug therapy - NO CONTROL SUBTANCE WITH CANNABIS FROM [facility] - reported not using cannabis hx recovery 07/13/2024 Nicotine use (ICD-10 - Z72.0) 1. depression- reported having more depression and anxiety -Wellbutrin XL 150 mg daily Sertraline 200 mg daily for increase depression and anxiety labs with EPIDEMIOLOGIST and also check hormone- waiting on results and scheduled 07/26/24 to be seen had thyroid checked [facility] educated on light box for seasonal effective d/o educated on light box therapy and excise- Medication Management and Follow-Up- Plan:- Schedule follow-up appointments every 2-3 months to monitor the patient's response to the medication regimen.- Reinforce the importance of avoiding recreational drug use due to potential neurotoxicity and interactions with prescribed medications. 2. Generalized anxiety disorder - Sertraline 200 mg daily for increase depression and anxiety Wellbutrin XL 150 mg daily Vistaril 10 mg daily to twice a day for anxiety as needed educated on rx no control substance by [facility]- educated on all medications, benefits, side effects and risk, and educated on depression, anxiety, and mood d/o and educated on compliance of medications, appointment's, continue therapy discussion with patient about course of treatment and patient instructions. 3. Primary insomnia -Melatonin OTC 4. tobacco use- vaping Do not smoke. Nicotine and other chemicals in cigarettes and cigars can cause lung damage. Ask your healthcare provider for information if you currently smoke and need help to quit. E-cigarettes or smokeless tobacco still contain nicotine. Talk to your healthcare provider before you use these products. education on decrease to stopping nicotine products and stop smoking hotline given Smoking Education Do not smoke. Nicotine and other chemicals in cigarettes and cigars can cause lung damage. Ask your healthcare provider for information if you currently smoke and need help to quit. E-cigarettes or smokeless tobacco still contain nicotine. Talk to your healthcare provider before you use these products. education on decrease to stopping nicotine products and stop smoking hotline given 659-Quit - Yes [place] Tobacco Quitline Call a Smoking Quitline The National Cancer [place]'s Smoking Quitline, (2-535-93N-QUIT) Smokefree.gov, which connects you with your State's Quitline, (7-816-GXZXLOU) Veterans Smoking Quitline, (9-875-EIXOARW 5. elevted blood pressure educated on healthy b/p 120/80 monitor b/p at home refer to PCP, Urgent care/ER heart healthy diet and excise limit salt intake limit soda intake and caffiene increase water 6. Long-term drug therapy - NO CONTROL SUBTANCE WITH CANNABIS FROM [facility] - reported not using cannabis hx recovery 10/07/2024 Nicotine use (ICD-10 - Z72.0) 1. depression- reported having anxiety with menopausal and on Estrogen and life situation -Wellbutrin XL 150 mg daily Sertraline 200 mg daily for depression and anxiety labs with EPIDEMIOLOGIST had thyroid checked [facility] educated on light box for seasonal effective d/o educated on light box therapy and excise- Medication Management and Follow-Up- Plan:- Schedule follow-up appointments every 2-3 months to monitor the patient's response to the medication regimen.- Reinforce the importance of avoiding recreational drug use due to potential neurotoxicity and interactions with prescribed medications. 2. Generalized anxiety disorder - Sertraline 200 mg daily for depression and anxiety Wellbutrin XL 150 mg daily Vistaril 10 mg daily to twice a day for anxiety as needed educated on all rx no control substance by [facility]- educated on all medications, benefits, side effects and risk, and educated on depression, anxiety, and mood d/o and educated on compliance of medications, appointment's, continue therapy discussion with patient about course of treatment and patient instructions. 3. Primary insomnia -Melatonin OTC 4. tobacco use- vaping Do not smoke. Nicotine and other chemicals in cigarettes and cigars can cause lung damage. Ask your healthcare provider for information if you currently smoke and need help to quit. E-cigarettes or smokeless tobacco still contain nicotine. Talk to your healthcare provider before you use these products. education on decrease to stopping nicotine products and stop smoking hotline given Smoking Education Do not smoke. Nicotine and other chemicals in cigarettes and cigars can cause lung damage. Ask your healthcare provider for information if you currently smoke and need help to quit. E-cigarettes or smokeless tobacco still contain nicotine. Talk to your healthcare provider before you use these products. education on decrease to stopping nicotine products and stop smoking hotline given Quit - Yes [place] Tobacco Quitline Call a Smoking Quitline The National Cancer [place]'s Smoking Quitline, (5-677-31T-QUIT) Smokefree.gov, which connects you with your State's Quitline, (5-702-ELLANQG) Veterans Smoking Quitline, (4-958-MJHBBTE 5. hx elevted blood pressure educated on healthy b/p 120/80 monitor b/p at home refer to PCP, Urgent care/ER heart healthy diet and excise limit salt intake limit soda intake and caffiene increase water 6. Long-term drug therapy - NO CONTROL SUBTANCE WITH CANNABIS FROM [facility] - reported not using cannabis hx recovery 10/07/2024 Encounter for screening for depression (ICD-10 - Z13.31) 1. depression- reported having anxiety with menopausal and on Estrogen and life situation -Wellbutrin XL 150 mg daily Sertraline 200 mg daily for depression and anxiety labs with EPIDEMIOLOGIST had thyroid checked [facility] educated on light box for seasonal effective d/o educated on light box therapy and excise- Medication Management and Follow-Up- Plan:- Schedule follow-up appointments every 2-3 months to monitor the patient's response to the medication regimen.- Reinforce the importance of avoiding recreational drug use due to potential neurotoxicity and interactions with prescribed medications. 2. Generalized anxiety disorder - Sertraline 200 mg daily for depression and anxiety Wellbutrin XL 150 mg daily Vistaril 10 mg daily to twice a day for anxiety as needed educated on all rx no control substance by [facility]- educated on all medications, benefits, side effects and risk, and educated on depression, anxiety, and mood d/o and educated on compliance of medications, appointment's, continue therapy discussion with patient about course of treatment and patient instructions. 3. Primary insomnia -Melatonin OTC 4. tobacco use- vaping Do not smoke. Nicotine and other chemicals in cigarettes and cigars can cause lung damage. Ask your healthcare provider for information if you currently smoke and need help to quit. E-cigarettes or smokeless tobacco still contain nicotine. Talk to your healthcare provider before you use these products. education on decrease to stopping nicotine products and stop smoking hotline given Smoking Education Do not smoke. Nicotine and other chemicals in cigarettes and cigars can cause lung damage. Ask your healthcare provider for information if you currently smoke and need help to quit. E-cigarettes or smokeless tobacco still contain nicotine. Talk to your healthcare provider before you use these products. education on decrease to stopping nicotine products and stop smoking hotline given -Quit - Yes [place] Tobacco Quitline Call a Smoking Quitline The National Cancer [place]'s Smoking Quitline, (4-111-47I-QUIT) Smokefree.gov, which connects you with your State's Quitline, (0-657-KLMWGPA) Veterans Smoking Quitline, (9-379-BQAVIZA 5. hx elevted blood pressure educated on healthy b/p 120/80 monitor b/p at home refer to PCP, Urgent care/ER heart healthy diet and excise limit salt intake limit soda intake and caffiene increase water 6. Long-term drug therapy - NO CONTROL SUBTANCE WITH CANNABIS FROM [facility] - reported not using cannabis hx recovery 07/13/2024 Encounter for screening for depression (ICD-10 - Z13.31) 1. depression- reported having more depression and anxiety -Wellbutrin XL 150 mg daily Sertraline 200 mg daily for increase depression and anxiety labs with EPIDEMIOLOGIST and also check hormone- waiting on results and scheduled 07/26/24 to be seen had thyroid checked [facility] educated on light box for seasonal effective d/o educated on light box therapy and excise- Medication Management and Follow-Up- Plan:- Schedule follow-up appointments every 2-3 months to monitor the patient's response to the medication regimen.- Reinforce the importance of avoiding recreational drug use due to potential neurotoxicity and interactions with prescribed medications. 2. Generalized anxiety disorder - Sertraline 200 mg daily for increase depression and anxiety Wellbutrin XL 150 mg daily Vistaril 10 mg daily to twice a day for anxiety as needed educated on rx no control substance by [facility]- educated on all medications, benefits, side effects and risk, and educated on depression, anxiety, and mood d/o and educated on compliance of medications, appointment's, continue therapy discussion with patient about course of treatment and patient instructions. 3. Primary insomnia -Melatonin OTC 4. tobacco use- vaping Do not smoke. Nicotine and other chemicals in cigarettes and cigars can cause lung damage. Ask your healthcare provider for information if you currently smoke and need help to quit. E-cigarettes or smokeless tobacco still contain nicotine. Talk to your healthcare provider before you use these products. education on decrease to stopping nicotine products and stop smoking hotline given Smoking Education Do not smoke. Nicotine and other chemicals in cigarettes and cigars can cause lung damage. Ask your healthcare provider for information if you currently smoke and need help to quit. E-cigarettes or smokeless tobacco still contain nicotine. Talk to your healthcare provider before you use these products. education on decrease to stopping nicotine products and stop smoking hotline given -Quit - Yes [place] Tobacco Quitline Call a Smoking Quitline The [employer] [place]'s Smoking Quitline, (6-233-56M-QUIT) Smokefree.gov, which connects you with your State's Quitline, (7-646-CSGOOTV) Veterans Smoking Quitline, (3-552-YPDGGNN 5. elevted blood pressure educated on healthy b/p 120/80 monitor b/p at home refer to PCP, Urgent care/ER heart healthy diet and excise limit salt intake limit soda intake and caffiene increase water 6. Long-term drug therapy - NO CONTROL SUBTANCE WITH CANNABIS FROM [facility] - reported not using cannabis hx recovery 06/17/2024 Nicotine use (ICD-10 - Z72.0) 1. depression- reported having more depression and anxiety -Wellbutrin XL 150 mg daily Increase Sertraline 200 mg daily for increase depression and anxiety labs scheduled next with EPIDEMIOLOGIST and also check hormone had thyroid checked [facility] educated on light box for seasonal effective d/o educated on light box therapy and excise- Medication Management and Follow-Up- Plan:- Schedule follow-up appointments every 2-3 months to monitor the patient's response to the medication regimen.- Reinforce the importance of avoiding recreational drug use due to potential neurotoxicity and interactions with prescribed medications. 2. Generalized anxiety disorder - Increase Sertraline 200 mg daily for increase depression and anxiety Wellbutrin XL 150 mg daily Vistaril 10 mg daily to twice a day for anxiety as needed educated on rx no control substance by [facility]- educated on all medications, benefits, side effects and risk, and educated on depression, anxiety, and mood d/o and educated on compliance of medications, appointment's, continue therapy discussion with patient about course of treatment and patient instructions. 3. Primary insomnia -Melatonin OTC 4. tobacco use- vaping Do not smoke. Nicotine and other chemicals in cigarettes and cigars can cause lung damage. Ask your healthcare provider for information if you currently smoke and need help to quit. E-cigarettes or smokeless tobacco still contain nicotine. Talk to your healthcare provider before you use these products. education on decrease to stopping nicotine products and stop smoking hotline given Smoking Education Do not smoke. Nicotine and other chemicals in cigarettes and cigars can cause lung damage. Ask your healthcare provider for information if you currently smoke and need help to quit. E-cigarettes or smokeless tobacco still contain nicotine. Talk to your healthcare provider before you use these products. education on decrease to stopping nicotine products and stop smoking hotline given 494-Quit - Yes [place] Tobacco Quitline Call a Smoking Quitline The [employer] [place]'s Smoking Quitline, (4-592-32S-QUIT) Smokefree.gov, which connects you with your State's Quitline, (6-374-NRUPVNX) Veterans Smoking Quitline, (6-199-IYYXCUZ 5. elevted blood pressure educated on healthy b/p 120/80 monitor b/p at home refer to PCP, Urgent care/ER heart healthy diet and excise limit salt intake limit soda intake and caffiene increase water 6. Long-term drug therapy - NO CONTROL SUBTANCE WITH CANNABIS FROM [facility] - reported not using cannabis hx recovery 03/19/2024 Generalized anxiety disorder (ICD-10 - F41.1) Learning About Generalized Anxiety Disorder material was published, Generalized Anxiety Disorder: Care Instructions material was published, Learning About Anxiety Disorders material was published 1. Recurrent major depressive episodes, mild -Wellbutrin XL [address] [facility] educated on light box for seasonal effective d/o educated on light box therapy and excise- uses light box Medication Management and Follow-Up- Plan:- Schedule follow-up appointments every 2-3 months to monitor the patient's response to the medication regimen.- Reinforce the importance of avoiding recreational drug use due to potential neurotoxicity and interactions with prescribed medications. 2. Generalized anxiety disorder - Sertraline 150 mg daily Wellbutrin XL 150 mg daily Vistaril 10 mg daily for anxiety as needed educated on rx no control substance by [facility]- educated on all medications, benefits, side effects and risk, and educated on depression, anxiety, and mood d/o and educated on compliance of medications, appointment's, continue therapy discussion with patient about course of treatment and patient instructions. 3. Primary insomnia -Melatonin OTC 4. tobacco use- vaping Do not smoke. Nicotine and other chemicals in cigarettes and cigars can cause lung damage. Ask your healthcare provider for information if you currently smoke and need help to quit. E-cigarettes or smokeless tobacco still contain nicotine. Talk to your healthcare provider before you use these products. education on decrease to stopping nicotine products and stop smoking hotline given 5. elevted blood pressure educated on healthy b/p 120/80 monitor b/p at home refer to PCP, Urgent care/ER heart healthy diet and excise limit salt intake limit soda intake and caffiene increase water 6. Long-term drug therapy - NO CONTROL SUBTANCE WITH CANNABIS FROM [facility] - reported not using cannabis hx recovery 12/19/2023 Primary insomnia (ICD-10 - F51.01) Insomnia: Care Instructions material was published, Learning About Sleeping Well material was published 1. Recurrent major depressive episodes, mild -Wellbutrin XL [address] [facility] educated on light box for seasonal effective d/o educated on light box therapy and excise- uses light box Medication Management and Follow-Up- Plan:- Schedule follow-up appointments every 2-3 months to monitor the patient's response to the medication regimen.- Reinforce the importance of avoiding recreational drug use due to potential neurotoxicity and interactions with prescribed medications. 2. Generalized anxiety disorder - Sertraline 150 mg daily Wellbutrin XL 150 mg daily Vistaril 10 mg daily for anxiety as needed educated on rx no control substance by [facility]- educated on all medications, benefits, side effects and risk, and educated on depression, anxiety, and mood d/o and educated on compliance of medications, appointment's, continue therapy discussion with patient about course of treatment and patient instructions. 3. Primary insomnia -Melatonin OTC 4. tobacco use- vaping Do not smoke. Nicotine and other chemicals in cigarettes and cigars can cause lung damage. Ask your healthcare provider for information if you currently smoke and need help to quit. E-cigarettes or smokeless tobacco still contain nicotine. Talk to your healthcare provider before you use these products. education on decrease to stopping nicotine products and stop smoking hotline given 5.. Long-term drug therapy - NO CONTROL SUBTANCE WITH CANNABIS FROM [facility] - reported not using cannabis hx recovery 03/19/2024 Primary insomnia (ICD-10 - F51.01) Insomnia: Care Instructions material was published, Learning About Sleeping Well material was published 1. Recurrent major depressive episodes, mild -Wellbutrin XL [address] [facility] educated on light box for seasonal effective d/o educated on light box therapy and excise- uses light box Medication Management and Follow-Up- Plan:- Schedule follow-up appointments every 2-3 months to monitor the patient's response to the medication regimen.- Reinforce the importance of avoiding recreational drug use due to potential neurotoxicity and interactions with prescribed medications. 2. Generalized anxiety disorder - Sertraline 150 mg daily Wellbutrin XL 150 mg daily Vistaril 10 mg daily for anxiety as needed educated on rx no control substance by [facility]- educated on all medications, benefits, side effects and risk, and educated on depression, anxiety, and mood d/o and educated on compliance of medications, appointment's, continue therapy discussion with patient about course of treatment and patient instructions. 3. Primary insomnia -Melatonin OTC 4. tobacco use- vaping Do not smoke. Nicotine and other chemicals in cigarettes and cigars can cause lung damage. Ask your healthcare provider for information if you currently smoke and need help to quit. E-cigarettes or smokeless tobacco still contain nicotine. Talk to your healthcare provider before you use these products. education on decrease to stopping nicotine products and stop smoking hotline given 5. elevted blood pressure educated on healthy b/p 120/80 monitor b/p at home refer to PCP, Urgent care/ER heart healthy diet and excise limit salt intake limit soda intake and caffiene increase water 6. Long-term drug therapy - NO CONTROL SUBTANCE WITH CANNABIS FROM [facility] - reported not using cannabis hx recovery 06/17/2024 Major depressive disorder, recurrent, mild (ICD-10 - F33.0) Preventing Depression From Coming Back: Care Instructions material was published, Depression Treatment: Care Instructions material was published, Seasonal Affective Disorder: Care Instructions material was published 1. depression- reported having more depression and anxiety -Wellbutrin XL 150 mg daily Increase Sertraline 200 mg daily for increase depression and anxiety labs scheduled next with EPIDEMIOLOGIST and also check hormone had thyroid checked [facility] educated on light box for seasonal effective d/o educated on light box therapy and excise- Medication Management and Follow-Up- Plan:- Schedule follow-up appointments every 2-3 months to monitor the patient's response to the medication regimen.- Reinforce the importance of avoiding recreational drug use due to potential neurotoxicity and interactions with prescribed medications. 2. Generalized anxiety disorder - Increase Sertraline 200 mg daily for increase depression and anxiety Wellbutrin XL 150 mg daily Vistaril 10 mg daily to twice a day for anxiety as needed educated on rx no control substance by [facility]- educated on all medications, benefits, side effects and risk, and educated on depression, anxiety, and mood d/o and educated on compliance of medications, appointment's, continue therapy discussion with patient about course of treatment and patient instructions. 3. Primary insomnia -Melatonin OTC 4. tobacco use- vaping Do not smoke. Nicotine and other chemicals in cigarettes and cigars can cause lung damage. Ask your healthcare provider for information if you currently smoke and need help to quit. E-cigarettes or smokeless tobacco still contain nicotine. Talk to your healthcare provider before you use these products. education on decrease to stopping nicotine products and stop smoking hotline given Smoking Education Do not smoke. Nicotine and other chemicals in cigarettes and cigars can cause lung damage. Ask your healthcare provider for information if you currently smoke and need help to quit. E-cigarettes or smokeless tobacco still contain nicotine. Talk to your healthcare provider before you use these products. education on decrease to stopping nicotine products and stop smoking hotline given Quit - Yes [place] Tobacco Quitline Call a Smoking Quitline The [employer] [place]'s Smoking Quitline, (8-702-45B-QUIT) Smokefree.gov, which connects you with your State's Quitline, (5-197-CLJYHMF) Veterans Smoking Quitline, (9-206-ZWUWRZZ 5. elevted blood pressure educated on healthy b/p 120/80 monitor b/p at home refer to PCP, Urgent care/ER heart healthy diet and excise limit salt intake limit soda intake and caffiene increase water 6. Long-term drug therapy - NO CONTROL SUBTANCE WITH CANNABIS FROM [facility] - reported not using cannabis hx recovery 06/17/2024 Generalized anxiety disorder (ICD-10 - F41.1) Learning About Generalized Anxiety Disorder material was published, Generalized Anxiety Disorder: Care Instructions material was published, Learning About Anxiety Disorders material was published 1. depression- reported having more depression and anxiety -Wellbutrin XL 150 mg daily Increase Sertraline 200 mg daily for increase depression and anxiety labs scheduled next with EPIDEMIOLOGIST and also check hormone had thyroid checked [facility] educated on light box for seasonal effective d/o educated on light box therapy and excise- Medication Management and Follow-Up- Plan:- Schedule follow-up appointments every 2-3 months to monitor the patient's response to the medication regimen.- Reinforce the importance of avoiding recreational drug use due to potential neurotoxicity and interactions with prescribed medications. 2. Generalized anxiety disorder - Increase Sertraline 200 mg daily for increase depression and anxiety Wellbutrin XL 150 mg daily Vistaril 10 mg daily to twice a day for anxiety as needed educated on rx no control substance by [facility]- educated on all medications, benefits, side effects and risk, and educated on depression, anxiety, and mood d/o and educated on compliance of medications, appointment's, continue therapy discussion with patient about course of treatment and patient instructions. 3. Primary insomnia -Melatonin OTC 4. tobacco use- vaping Do not smoke. Nicotine and other chemicals in cigarettes and cigars can cause lung damage. Ask your healthcare provider for information if you currently smoke and need help to quit. E-cigarettes or smokeless tobacco still contain nicotine. Talk to your healthcare provider before you use these products. education on decrease to stopping nicotine products and stop smoking hotline given Smoking Education Do not smoke. Nicotine and other chemicals in cigarettes and cigars can cause lung damage. Ask your healthcare provider for information if you currently smoke and need help to quit. E-cigarettes or smokeless tobacco still contain nicotine. Talk to your healthcare provider before you use these products. education on decrease to stopping nicotine products and stop smoking hotline given -Quit - Yes [place] Tobacco Quitline Call a Smoking Quitline The [employer] [place]'s Smoking Quitline, (4-139-07E-QUIT) Smokefree.gov, which connects you with your State's Quitline, (3-985-TARDYDO) Veterans Smoking Quitline, (7-486-UXGRSEC 5. elevted blood pressure educated on healthy b/p 120/80 monitor b/p at home refer to PCP, Urgent care/ER heart healthy diet and excise limit salt intake limit soda intake and caffiene increase water 6. 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 Recurrent major depressive episodes, mild -Wellbutrin XL [address] [facility] educated on light box for seasonal effective d/o educated on light box therapy and excise- uses light box Medication Management and Follow-Up- Plan:- Schedule follow-up appointments every 2-3 months to monitor the patient's response to the medication regimen.- Reinforce the importance of avoiding recreational drug use due to potential neurotoxicity and interactions with prescribed medications. 2. Generalized anxiety disorder - Sertraline 150 mg daily Wellbutrin XL 150 mg daily Vistaril 10 mg daily for anxiety as needed educated on rx no control substance by [facility]- educated on all medications, benefits, side effects and risk, and educated on depression, anxiety, and mood d/o and educated on compliance of medications, appointment's, continue therapy discussion with patient about course of treatment and patient instructions. 3. Primary insomnia -Melatonin OTC 4. tobacco use- vaping Do not smoke. Nicotine and other chemicals in cigarettes and cigars can cause lung damage. Ask your healthcare provider for information if you currently smoke and need help to quit. E-cigarettes or smokeless tobacco still contain nicotine. Talk to your healthcare provider before you use these products. education on decrease to stopping nicotine products and stop smoking hotline given 5.. Long-term drug therapy - NO CONTROL SUBTANCE WITH CANNABIS FROM [facility] - reported not using cannabis hx recovery 07/13/2024 Encounter for screening for cardiovascular disorders (ICD-10 - Z13.6) 1. depression- reported having more depression and anxiety -Wellbutrin XL 150 mg daily Sertraline 200 mg daily for increase depression and anxiety labs with EPIDEMIOLOGIST and also check hormone- waiting on results and scheduled 07/26/24 to be seen had thyroid checked [facility] educated on light box for seasonal effective d/o educated on light box therapy and excise- Medication Management and Follow-Up- Plan:- Schedule follow-up appointments every 2-3 months to monitor the patient's response to the medication regimen.- Reinforce the importance of avoiding recreational drug use due to potential neurotoxicity and interactions with prescribed medications. 2. Generalized anxiety disorder - Sertraline 200 mg daily for increase depression and anxiety Wellbutrin XL 150 mg daily Vistaril 10 mg daily to twice a day for anxiety as needed educated on rx no control substance by [facility]- educated on all medications, benefits, side effects and risk, and educated on depression, anxiety, and mood d/o and educated on compliance of medications, appointment's, continue therapy discussion with patient about course of treatment and patient instructions. 3. Primary insomnia -Melatonin OTC 4. tobacco use- vaping Do not smoke. Nicotine and other chemicals in cigarettes and cigars can cause lung damage. Ask your healthcare provider for information if you currently smoke and need help to quit. E-cigarettes or smokeless tobacco still contain nicotine. Talk to your healthcare provider before you use these products. education on decrease to stopping nicotine products and stop smoking hotline given Smoking Education Do not smoke. Nicotine and other chemicals in cigarettes and cigars can cause lung damage. Ask your healthcare provider for information if you currently smoke and need help to quit. E-cigarettes or smokeless tobacco still contain nicotine. Talk to your healthcare provider before you use these products. education on decrease to stopping nicotine products and stop smoking hotline given Quit - Yes [place] Tobacco Quitline Call a Smoking Quitline The [employer] [place]'s Smoking Quitline, (5-387-20L-QUIT) Smokefree.gov, which connects you with your State's Quitline, (4-549-TJGDAGP) [facility] Smoking Quitline, (3-046-IYQMEXX 5. elevted blood pressure educated on healthy b/p 120/80 monitor b/p at home refer to PCP, Urgent care/ER heart healthy diet and excise limit salt intake limit soda intake and caffiene increase water 6. Long-term drug therapy - NO CONTROL SUBTANCE WITH CANNABIS FROM [facility] - reported not using cannabis hx recovery 10/07/2024 Encounter for screening for cardiovascular disorders (ICD-10 - Z13.6) 1. depression- reported having anxiety with menopausal and on Estrogen and life situation -Wellbutrin XL 150 mg daily Sertraline 200 mg daily for depression and anxiety labs with EPIDEMIOLOGIST had thyroid checked [facility] educated on light box for seasonal effective d/o educated on light box therapy and excise- Medication Management and Follow-Up- Plan:- Schedule follow-up appointments every 2-3 months to monitor the patient's response to the medication regimen.- Reinforce the importance of avoiding recreational drug use due to potential neurotoxicity and interactions with prescribed medications. 2. Generalized anxiety disorder - Sertraline 200 mg daily for depression and anxiety Wellbutrin XL 150 mg daily Vistaril 10 mg daily to twice a day for anxiety as needed educated on all rx no control substance by [facility]- educated on all medications, benefits, side effects and risk, and educated on depression, anxiety, and mood d/o and educated on compliance of medications, appointment's, continue therapy discussion with patient about course of treatment and patient instructions. 3. Primary insomnia -Melatonin OTC 4. tobacco use- vaping Do not smoke. Nicotine and other chemicals in cigarettes and cigars can cause lung damage. Ask your healthcare provider for information if you currently smoke and need help to quit. E-cigarettes or smokeless tobacco still contain nicotine. Talk to your healthcare provider before you use these products. education on decrease to stopping nicotine products and stop smoking hotline given Smoking Education Do not smoke. Nicotine and other chemicals in cigarettes and cigars can cause lung damage. Ask your healthcare provider for information if you currently smoke and need help to quit. E-cigarettes or smokeless tobacco still contain nicotine. Talk to your healthcare provider before you use these products. education on decrease to stopping nicotine products and stop smoking hotline given 442-Quit - Yes [place] Tobacco Quitline Call a Smoking Quitline The National Cancer [place]'s Smoking Quitline, (9-787-96I-QUIT) Smokefree.gov, which connects you with your State's Quitline, (8-693-GHBPDOX) [facility] Smoking Quitline, (2-524-OPGDLCS 5. hx elevted blood pressure educated on healthy b/p 120/80 monitor b/p at home refer to PCP, Urgent care/ER heart healthy diet and excise limit salt intake limit soda intake and caffiene increase water 6. Long-term drug therapy - NO CONTROL SUBTANCE WITH CANNABIS FROM [facility] - reported not using cannabis hx recovery 10/07/2024 Major depressive disorder, recurrent, mild (ICD-10 - F33.0) Preventing Depression From Coming Back: Care Instructions material was published, Depression Treatment: Care Instructions material was published, Seasonal Affective Disorder: Care Instructions material was published 1. depression- reported having anxiety with menopausal and on Estrogen and life situation -Wellbutrin XL 150 mg daily Sertraline 200 mg daily for depression and anxiety labs with EPIDEMIOLOGIST had thyroid checked [facility] Pharmacy educated on light box for seasonal effective d/o educated on light box therapy and excise- Medication Management and Follow-Up- Plan:- Schedule follow-up appointments every 2-3 months to monitor the patient's response to the medication regimen.- Reinforce the importance of avoiding recreational drug use due to potential neurotoxicity and interactions with prescribed medications. 2. Generalized anxiety disorder - Sertraline 200 mg daily for depression and anxiety Wellbutrin XL 150 mg daily Vistaril 10 mg daily to twice a day for anxiety as needed educated on all rx no control substance by [facility]- educated on all medications, benefits, side effects and risk, and educated on depression, anxiety, and mood d/o and educated on compliance of medications, appointment's, continue therapy discussion with patient about course of treatment and patient instructions. 3. Primary insomnia -Melatonin OTC 4. tobacco use- vaping Do not smoke. Nicotine and other chemicals in cigarettes and cigars can cause lung damage. Ask your healthcare provider for information if you currently smoke and need help to quit. E-cigarettes or smokeless tobacco still contain nicotine. Talk to your healthcare provider before you use these products. education on decrease to stopping nicotine products and stop smoking hotline given Smoking Education Do not smoke. Nicotine and other chemicals in cigarettes and cigars can cause lung damage. Ask your healthcare provider for information if you currently smoke and need help to quit. E-cigarettes or smokeless tobacco still contain nicotine. Talk to your healthcare provider before you use these products. education on decrease to stopping nicotine products and stop smoking hotline given Quit - Yes [place] Tobacco Quitline Call a Smoking Quitline The [employer] [place]'s Smoking Quitline, (7-653-35C-QUIT) Smokefree.gov, which connects you with your State's Quitline, (0-622-ANRVUAH) Veterans Smoking Quitline, (1-666-KCURSCH 5. hx elevted blood pressure educated on healthy b/p 120/80 monitor b/p at home refer to PCP, Urgent care/ER heart healthy diet and excise limit salt intake limit soda intake and caffiene increase water 6. 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 Recurrent major depressive episodes, mild -Wellbutrin XL [address] [facility] Pharmacy educated on light box for seasonal effective d/o educated on light box therapy and excise- uses light box Medication Management and Follow-Up- Plan:- Schedule follow-up appointments every 2-3 months to monitor the patient's response to the medication regimen.- Reinforce the importance of avoiding recreational drug use due to potential neurotoxicity and interactions with prescribed medications. 2. Generalized anxiety disorder - Sertraline 150 mg daily Wellbutrin XL 150 mg daily Vistaril 10 mg daily for anxiety as needed educated on rx no control substance by [facility]- educated on all medications, benefits, side effects and risk, and educated on depression, anxiety, and mood d/o and educated on compliance of medications, appointment's, continue therapy discussion with patient about course of treatment and patient instructions. 3. Primary insomnia -Melatonin OTC 4. tobacco use- vaping Do not smoke. Nicotine and other chemicals in cigarettes and cigars can cause lung damage. Ask your healthcare provider for information if you currently smoke and need help to quit. E-cigarettes or smokeless tobacco still contain nicotine. Talk to your healthcare provider before you use these products. education on decrease to stopping nicotine products and stop smoking hotline given 5. elevted blood pressure educated on healthy b/p 120/80 monitor b/p at home refer to PCP, Urgent care/ER heart healthy diet and excise limit salt intake limit soda intake and caffiene increase water 6. Long-term drug therapy - NO CONTROL SUBTANCE WITH CANNABIS FROM [facility] - reported not using cannabis hx recovery 07/13/2024 Major depressive disorder, recurrent, mild (ICD-10 - F33.0) Preventing Depression From Coming Back: Care Instructions material was published, Depression Treatment: Care Instructions material was published, Seasonal Affective Disorder: Care Instructions material was published 1. depression- reported having more depression and anxiety -Wellbutrin XL 150 mg daily Sertraline 200 mg daily for increase depression and anxiety labs with EPIDEMIOLOGIST and also check hormone- waiting on results and scheduled 07/26/24 to be seen had thyroid checked [facility] Pharmacy educated on light box for seasonal effective d/o educated on light box therapy and excise- Medication Management and Follow-Up- Plan:- Schedule follow-up appointments every 2-3 months to monitor the patient's response to the medication regimen.- Reinforce the importance of avoiding recreational drug use due to potential neurotoxicity and interactions with prescribed medications. 2. Generalized anxiety disorder - Sertraline 200 mg daily for increase depression and anxiety Wellbutrin XL 150 mg daily Vistaril 10 mg daily to twice a day for anxiety as needed educated on rx no control substance by [facility]- educated on all medications, benefits, side effects and risk, and educated on depression, anxiety, and mood d/o and educated on compliance of medications, appointment's, continue therapy discussion with patient about course of treatment and patient instructions. 3. Primary insomnia -Melatonin OTC 4. tobacco use- vaping Do not smoke. Nicotine and other chemicals in cigarettes and cigars can cause lung damage. Ask your healthcare provider for information if you currently smoke and need help to quit. E-cigarettes or smokeless tobacco still contain nicotine. Talk to your healthcare provider before you use these products. education on decrease to stopping nicotine products and stop smoking hotline given Smoking Education Do not smoke. Nicotine and other chemicals in cigarettes and cigars can cause lung damage. Ask your healthcare provider for information if you currently smoke and need help to quit. E-cigarettes or smokeless tobacco still contain nicotine. Talk to your healthcare provider before you use these products. education on decrease to stopping nicotine products and stop smoking hotline given -Quit - Yes [place] Tobacco Quitline Call a Smoking Quitline The [employer] [place]'s Smoking Quitline, (2-548-13L-QUIT) Smokefree.gov, which connects you with your State's Quitline, (7-082-YYJGBHJ) Veterans Smoking Quitline, (1-705-MPUJPIL 5. elevted blood pressure educated on healthy b/p 120/80 monitor b/p at home refer to PCP, Urgent care/ER heart healthy diet and excise limit salt intake limit soda intake and caffiene increase water 6. Long-term drug therapy - NO CONTROL SUBTANCE WITH CANNABIS FROM [facility] - reported not using cannabis hx recovery 06/17/2024 Primary insomnia (ICD-10 - F51.01) Insomnia: Care Instructions material was published, Learning About Sleeping Well material was published 1. depression- reported having more depression and anxiety -Wellbutrin XL 150 mg daily Increase Sertraline 200 mg daily for increase depression and anxiety labs scheduled next with EPIDEMIOLOGIST and also check hormone had thyroid checked [facility] Pharmacy educated on light box for seasonal effective d/o educated on light box therapy and excise- Medication Management and Follow-Up- Plan:- Schedule follow-up appointments every 2-3 months to monitor the patient's response to the medication regimen.- Reinforce the importance of avoiding recreational drug use due to potential neurotoxicity and interactions with prescribed medications. 2. Generalized anxiety disorder - Increase Sertraline 200 mg daily for increase depression and anxiety Wellbutrin XL 150 mg daily Vistaril 10 mg daily to twice a day for anxiety as needed educated on rx no control substance by [facility]- educated on all medications, benefits, side effects and risk, and educated on depression, anxiety, and mood d/o and educated on compliance of medications, appointment's, continue therapy discussion with patient about course of treatment and patient instructions. 3. Primary insomnia -Melatonin OTC 4. tobacco use- vaping Do not smoke. Nicotine and other chemicals in cigarettes and cigars can cause lung damage. Ask your healthcare provider for information if you currently smoke and need help to quit. E-cigarettes or smokeless tobacco still contain nicotine. Talk to your healthcare provider before you use these products. education on decrease to stopping nicotine products and stop smoking hotline given Smoking Education Do not smoke. Nicotine and other chemicals in cigarettes and cigars can cause lung damage. Ask your healthcare provider for information if you currently smoke and need help to quit. E-cigarettes or smokeless tobacco still contain nicotine. Talk to your healthcare provider before you use these products. education on decrease to stopping nicotine products and stop smoking hotline given -Quit - Yes [place] Tobacco Quitline Call a Smoking Quitline The [employer] [place]'s Smoking Quitline, (1-796-71Y-QUIT) Smokefree.gov, which connects you with your State's Quitline, (6-858-YARLITQ) [facility] Smoking Quitline, (2-246-USNOLMQ 5. elevted blood pressure educated on healthy b/p 120/80 monitor b/p at home refer to PCP, Urgent care/ER heart healthy diet and excise limit salt intake limit soda intake and caffiene increase water 6. Long-term drug therapy - NO CONTROL SUBTANCE WITH CANNABIS FROM [facility] - reported not using cannabis hx recovery 12/19/2023 Tobacco use (ICD-10 - Z72.0) 1. Recurrent major depressive episodes, mild -Wellbutrin XL [address] [facility] Pharmacy educated on light box for seasonal effective d/o educated on light box therapy and excise- uses light box Medication Management and Follow-Up- Plan:- Schedule follow-up appointments every 2-3 months to monitor the patient's response to the medication regimen.- Reinforce the importance of avoiding recreational drug use due to potential neurotoxicity and interactions with prescribed medications. 2. Generalized anxiety disorder - Sertraline 150 mg daily Wellbutrin XL 150 mg daily Vistaril 10 mg daily for anxiety as needed educated on rx no control substance by [facility]- educated on all medications, benefits, side effects and risk, and educated on depression, anxiety, and mood d/o and educated on compliance of medications, appointment's, continue therapy discussion with patient about course of treatment and patient instructions. 3. Primary insomnia -Melatonin OTC 4. tobacco use- vaping Do not smoke. Nicotine and other chemicals in cigarettes and cigars can cause lung damage. Ask your healthcare provider for information if you currently smoke and need help to quit. E-cigarettes or smokeless tobacco still contain nicotine. Talk to your healthcare provider before you use these products. education on decrease to stopping nicotine products and stop smoking hotline given 5.. Long-term drug therapy - NO CONTROL SUBTANCE WITH CANNABIS FROM [facility] - reported not using cannabis hx recovery 03/19/2024 Tobacco use (ICD-10 - Z72.0) 1. Recurrent major depressive episodes, mild -Wellbutrin XL [address] [facility] Pharmacy educated on light box for seasonal effective d/o educated on light box therapy and excise- uses light box Medication Management and Follow-Up- Plan:- Schedule follow-up appointments every 2-3 months to monitor the patient's response to the medication regimen.- Reinforce the importance of avoiding recreational drug use due to potential neurotoxicity and interactions with prescribed medications. 2. Generalized anxiety disorder - Sertraline 150 mg daily Wellbutrin XL 150 mg daily Vistaril 10 mg daily for anxiety as needed educated on rx no control substance by [facility]- educated on all medications, benefits, side effects and risk, and educated on depression, anxiety, and mood d/o and educated on compliance of medications, appointment's, continue therapy discussion with patient about course of treatment and patient instructions. 3. Primary insomnia -Melatonin OTC 4. tobacco use- vaping Do not smoke. Nicotine and other chemicals in cigarettes and cigars can cause lung damage. Ask your healthcare provider for information if you currently smoke and need help to quit. E-cigarettes or smokeless tobacco still contain nicotine. Talk to your healthcare provider before you use these products. education on decrease to stopping nicotine products and stop smoking hotline given 5. elevted blood pressure educated on healthy b/p 120/80 monitor b/p at home refer to PCP, Urgent care/ER heart healthy diet and excise limit salt intake limit soda intake and caffiene increase water 6. Long-term drug therapy - NO CONTROL SUBTANCE WITH CANNABIS FROM [facility] - reported not using cannabis hx recovery 07/13/2024 Generalized anxiety disorder (ICD-10 - F41.1) Learning About Generalized Anxiety Disorder material was published, Generalized Anxiety Disorder: Care Instructions material was published, Learning About Anxiety Disorders material was published 1. depression- reported having more depression and anxiety -Wellbutrin XL 150 mg daily Sertraline 200 mg daily for increase depression and anxiety labs with EPIDEMIOLOGIST and also check hormone- waiting on results and scheduled 07/26/24 to be seen had thyroid checked [facility] Pharmacy educated on light box for seasonal effective d/o educated on light box therapy and excise- Medication Management and Follow-Up- Plan:- Schedule follow-up appointments every 2-3 months to monitor the patient's response to the medication regimen.- Reinforce the importance of avoiding recreational drug use due to potential neurotoxicity and interactions with prescribed medications. 2. Generalized anxiety disorder - Sertraline 200 mg daily for increase depression and anxiety Wellbutrin XL 150 mg daily Vistaril 10 mg daily to twice a day for anxiety as needed educated on rx no control substance by [facility]- educated on all medications, benefits, side effects and risk, and educated on depression, anxiety, and mood d/o and educated on compliance of medications, appointment's, continue therapy discussion with patient about course of treatment and patient instructions. 3. Primary insomnia -Melatonin OTC 4. tobacco use- vaping Do not smoke. Nicotine and other chemicals in cigarettes and cigars can cause lung damage. Ask your healthcare provider for information if you currently smoke and need help to quit. E-cigarettes or smokeless tobacco still contain nicotine. Talk to your healthcare provider before you use these products. education on decrease to stopping nicotine products and stop smoking hotline given Smoking Education Do not smoke. Nicotine and other chemicals in cigarettes and cigars can cause lung damage. Ask your healthcare provider for information if you currently smoke and need help to quit. E-cigarettes or smokeless tobacco still contain nicotine. Talk to your healthcare provider before you use these products. education on decrease to stopping nicotine products and stop smoking hotline given -Quit - Yes [place] Tobacco Quitline Call a Smoking Quitline The [employer] [place]'s Smoking Quitline, (3-498-75C-QUIT) Smokefree.gov, which connects you with your State's Quitline, (0-101-HNSDLMJ) [facility] Smoking Quitline, (8-682-DUAZJNS 5. elevted blood pressure educated on healthy b/p 120/80 monitor b/p at home refer to PCP, Urgent care/ER heart healthy diet and excise limit salt intake limit soda intake and caffiene increase water 6. Long-term drug therapy - NO CONTROL SUBTANCE WITH CANNABIS FROM [facility] - reported not using cannabis hx recovery 10/07/2024 Generalized anxiety disorder (ICD-10 - F41.1) Learning About Generalized Anxiety Disorder material was published, Generalized Anxiety Disorder: Care Instructions material was published, Learning About Anxiety Disorders material was published 1. depression- reported having anxiety with menopausal and on Estrogen and life situation -Wellbutrin XL 150 mg daily Sertraline 200 mg daily for depression and anxiety labs with EPIDEMIOLOGIST had thyroid checked [facility] Pharmacy educated on light box for seasonal effective d/o educated on light box therapy and excise- Medication Management and Follow-Up- Plan:- Schedule follow-up appointments every 2-3 months to monitor the patient's response to the medication regimen.- Reinforce the importance of avoiding recreational drug use due to potential neurotoxicity and interactions with prescribed medications. 2. Generalized anxiety disorder - Sertraline 200 mg daily for depression and anxiety Wellbutrin XL 150 mg daily Vistaril 10 mg daily to twice a day for anxiety as needed educated on all rx no control substance by [facility]- educated on all medications, benefits, side effects and risk, and educated on depression, anxiety, and mood d/o and educated on compliance of medications, appointment's, continue therapy discussion with patient about course of treatment and patient instructions. 3. Primary insomnia -Melatonin OTC 4. tobacco use- vaping Do not smoke. Nicotine and other chemicals in cigarettes and cigars can cause lung damage. Ask your healthcare provider for information if you currently smoke and need help to quit. E-cigarettes or smokeless tobacco still contain nicotine. Talk to your healthcare provider before you use these products. education on decrease to stopping nicotine products and stop smoking hotline given Smoking Education Do not smoke. Nicotine and other chemicals in cigarettes and cigars can cause lung damage. Ask your healthcare provider for information if you currently smoke and need help to quit. E-cigarettes or smokeless tobacco still contain nicotine. Talk to your healthcare provider before you use these products. education on decrease to stopping nicotine products and stop smoking hotline given -Quit - Yes [place] Tobacco Quitline Call a Smoking Quitline The [employer] [place]'s Smoking Quitline, (1-154-13Y-QUIT) Smokefree.gov, which connects you with your State's Quitline, (0-726-MLKISNW) [facility] Smoking Quitline, (5-676-GXHEUSY 5. hx elevted blood pressure educated on healthy b/p 120/80 monitor b/p at home refer to PCP, Urgent care/ER heart healthy diet and excise limit salt intake limit soda intake and caffiene increase water 6. 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 depression- reported having more depression and anxiety -Wellbutrin XL 150 mg daily Increase Sertraline 200 mg daily for increase depression and anxiety labs scheduled next with EPIDEMIOLOGIST and also check hormone had thyroid checked [facility] Pharmacy educated on light box for seasonal effective d/o educated on light box therapy and excise- Medication Management and Follow-Up- Plan:- Schedule follow-up appointments every 2-3 months to monitor the patient's response to the medication regimen.- Reinforce the importance of avoiding recreational drug use due to potential neurotoxicity and interactions with prescribed medications. 2. Generalized anxiety disorder - Increase Sertraline 200 mg daily for increase depression and anxiety Wellbutrin XL 150 mg daily Vistaril 10 mg daily to twice a day for anxiety as needed educated on rx no control substance by [facility]- educated on all medications, benefits, side effects and risk, and educated on depression, anxiety, and mood d/o and educated on compliance of medications, appointment's, continue therapy discussion with patient about course of treatment and patient instructions. 3. Primary insomnia -Melatonin OTC 4. tobacco use- vaping Do not smoke. Nicotine and other chemicals in cigarettes and cigars can cause lung damage. Ask your healthcare provider for information if you currently smoke and need help to quit. E-cigarettes or smokeless tobacco still contain nicotine. Talk to your healthcare provider before you use these products. education on decrease to stopping nicotine products and stop smoking hotline given Smoking Education Do not smoke. Nicotine and other chemicals in cigarettes and cigars can cause lung damage. Ask your healthcare provider for information if you currently smoke and need help to quit. E-cigarettes or smokeless tobacco still contain nicotine. Talk to your healthcare provider before you use these products. education on decrease to stopping nicotine products and stop smoking hotline given Quit - Yes [place] Tobacco Quitline Call a Smoking Quitline The [employer] [place]'s Smoking Quitline, (3-939-29N-QUIT) Smokefree.gov, which connects you with your State's Quitline, (8-388-XJNMHFK) [facility] Smoking Quitline, (9-351-XWKLOHQ 5. elevted blood pressure educated on healthy b/p 120/80 monitor b/p at home refer to PCP, Urgent care/ER heart healthy diet and excise limit salt intake limit soda intake and caffiene increase water 6. Long-term drug therapy - NO CONTROL SUBTANCE WITH CANNABIS FROM [facility] - reported not using cannabis hx recovery 10/07/2024 Primary insomnia (ICD-10 - F51.01) Insomnia: Care Instructions material was published, Learning About Sleeping Well material was published 1. depression- reported having anxiety with menopausal and on Estrogen and life situation -Wellbutrin XL 150 mg daily Sertraline 200 mg daily for depression and anxiety labs with EPIDEMIOLOGIST had thyroid checked [facility] Pharmacy educated on light box for seasonal effective d/o educated on light box therapy and excise- Medication Management and Follow-Up- Plan:- Schedule follow-up appointments every 2-3 months to monitor the patient's response to the medication regimen.- Reinforce the importance of avoiding recreational drug use due to potential neurotoxicity and interactions with prescribed medications. 2. Generalized anxiety disorder - Sertraline 200 mg daily for depression and anxiety Wellbutrin XL 150 mg daily Vistaril 10 mg daily to twice a day for anxiety as needed educated on all rx no control substance by [facility]- educated on all medications, benefits, side effects and risk, and educated on depression, anxiety, and mood d/o and educated on compliance of medications, appointment's, continue therapy discussion with patient about course of treatment and patient instructions. 3. Primary insomnia -Melatonin OTC 4. tobacco use- vaping Do not smoke. Nicotine and other chemicals in cigarettes and cigars can cause lung damage. Ask your healthcare provider for information if you currently smoke and need help to quit. E-cigarettes or smokeless tobacco still contain nicotine. Talk to your healthcare provider before you use these products. education on decrease to stopping nicotine products and stop smoking hotline given Smoking Education Do not smoke. Nicotine and other chemicals in cigarettes and cigars can cause lung damage. Ask your healthcare provider for information if you currently smoke and need help to quit. E-cigarettes or smokeless tobacco still contain nicotine. Talk to your healthcare provider before you use these products. education on decrease to stopping nicotine products and stop smoking hotline given 574-Quit - Yes [place] Tobacco Quitline Call a Smoking Quitline The National Cancer [place]'s Smoking Quitline, (3-519-63U-QUIT) Smokefree.gov, which connects you with your State's Quitline, (2-692-NXUJDRR) [facility] Smoking Quitline, (2-708-LLEOMCX 5. hx elevted blood pressure educated on healthy b/p 120/80 monitor b/p at home refer to PCP, Urgent care/ER heart healthy diet and excise limit salt intake limit soda intake and caffiene increase water 6. Long-term drug therapy - NO CONTROL SUBTANCE WITH CANNABIS FROM [facility] - reported not using cannabis hx recovery 07/13/2024 Primary insomnia (ICD-10 - F51.01) Insomnia: Care Instructions material was published, Learning About [facility] Well material was published 1. depression- reported having more depression and anxiety -Wellbutrin XL 150 mg daily Sertraline 200 mg daily for increase depression and anxiety labs with EPIDEMIOLOGIST and also check hormone- waiting on results and scheduled 07/26/24 to be seen had thyroid checked [facility] educated on light box for seasonal effective d/o educated on light box therapy and excise- Medication Management and Follow-Up- Plan:- Schedule follow-up appointments every 2-3 months to monitor the patient's response to the medication regimen.- Reinforce the importance of avoiding recreational drug use due to potential neurotoxicity and interactions with prescribed medications. 2. Generalized anxiety disorder - Sertraline 200 mg daily for increase depression and anxiety Wellbutrin XL 150 mg daily Vistaril 10 mg daily to twice a day for anxiety as needed educated on rx no control substance by DANELLE- educated on all medications, benefits, side effects and risk, and educated on depression, anxiety, and mood d/o and educated on compliance of medications, appointment's, continue therapy discussion with patient about course of treatment and patient instructions. 3. Primary insomnia -Melatonin OTC 4. tobacco use- vaping Do not smoke. Nicotine and other chemicals in cigarettes and cigars can cause lung damage. Ask your healthcare provider for information if you currently smoke and need help to quit. E-cigarettes or smokeless tobacco still contain nicotine. Talk to your healthcare provider before you use these products. education on decrease to stopping nicotine products and stop smoking hotline given Smoking Education Do not smoke. Nicotine and other chemicals in cigarettes and cigars can cause lung damage. Ask your healthcare provider for information if you currently smoke and need help to quit. E-cigarettes or smokeless tobacco still contain nicotine. Talk to your healthcare provider before you use these products. education on decrease to stopping nicotine products and stop smoking hotline given 701-Quit - Yes [place] Tobacco Quitline Call a Smoking Quitline The [employer] [place]'s Smoking Quitline, (2-419-73Y-QUIT) Smokefree.gov, which connects you with your [facility]'s Quitline, (8-155-CABMHZK) [facility] Smoking Quitline, (3-143-IHCKFVO 5. elevted blood pressure educated on healthy b/p 120/80 monitor b/p at home refer to PCP, Urgent care/ER heart healthy diet and excise limit salt intake limit soda intake and caffiene increase water 6. Long-term drug therapy - NO CONTROL SUBTANCE WITH CANNABIS FROM [facility] - reported not using cannabis hx recovery 06/17/2024 Encounter for screening for cardiovascular disorders (ICD-10 - Z13.6) 1. depression- reported having more depression and anxiety -Wellbutrin XL 150 mg daily Increase Sertraline 200 mg daily for increase depression and anxiety labs scheduled next with EPIDEMIOLOGIST and also check hormone had thyroid checked [facility] educated on light box for seasonal effective d/o educated on light box therapy and excise- Medication Management and Follow-Up- Plan:- Schedule follow-up appointments every 2-3 months to monitor the patient's response to the medication regimen.- Reinforce the importance of avoiding recreational drug use due to potential neurotoxicity and interactions with prescribed medications. 2. Generalized anxiety disorder - Increase Sertraline 200 mg daily for increase depression and anxiety Wellbutrin XL 150 mg daily Vistaril 10 mg daily to twice a day for anxiety as needed educated on rx no control substance by DANELLE- educated on all medications, benefits, side effects and risk, and educated on depression, anxiety, and mood d/o and educated on compliance of medications, appointment's, continue therapy discussion with patient about course of treatment and patient instructions. 3. Primary insomnia -Melatonin OTC 4. tobacco use- vaping Do not smoke. Nicotine and other chemicals in cigarettes and cigars can cause lung damage. Ask your healthcare provider for information if you currently smoke and need help to quit. E-cigarettes or smokeless tobacco still contain nicotine. Talk to your healthcare provider before you use these products. education on decrease to stopping nicotine products and stop smoking hotline given Smoking Education Do not smoke. Nicotine and other chemicals in cigarettes and cigars can cause lung damage. Ask your healthcare provider for information if you currently smoke and need help to quit. E-cigarettes or smokeless tobacco still contain nicotine. Talk to your healthcare provider before you use these products. education on decrease to stopping nicotine products and stop smoking hotline given 514Quit - Yes [place] Tobacco Quitline Call a Smoking Quitline The [employer] [place]'s Smoking Quitline, (9-596-55N-QUIT) Smokefree.gov, which connects you with your State's Quitline, (5-979-XFJEPCJ) [facility] Smoking Quitline, (3-481-OZTCDXT 5. elevted blood pressure educated on healthy b/p 120/80 monitor b/p at home refer to PCP, Urgent care/ER heart healthy diet and excise limit salt intake limit soda intake and caffiene increase water 6. Long-term drug therapy - NO CONTROL SUBTANCE WITH CANNABIS FROM [facility] - reported not using cannabis hx recovery 07/13/2024 Other shelter (current) drug therapy (ICD-10 - Z79.899) Medication Refill: Care Instructions material was published 1. depression- reported having more depression and anxiety -Wellbutrin XL 150 mg daily Sertraline 200 mg daily for increase depression and anxiety labs with EPIDEMIOLOGIST and also check hormone- waiting on results and scheduled 07/26/24 to be seen had thyroid checked [facility] educated on light box for seasonal effective d/o educated on light box therapy and excise- Medication Management and Follow-Up- Plan:- Schedule follow-up appointments every 2-3 months to monitor the patient's response to the medication regimen.- Reinforce the importance of avoiding recreational drug use due to potential neurotoxicity and interactions with prescribed medications. 2. Generalized anxiety disorder - Sertraline 200 mg daily for increase depression and anxiety Wellbutrin XL 150 mg daily Vistaril 10 mg daily to twice a day for anxiety as needed educated on rx no control substance by DANELLE- educated on all medications, benefits, side effects and risk, and educated on depression, anxiety, and mood d/o and educated on compliance of medications, appointment's, continue therapy discussion with patient about course of treatment and patient instructions. 3. Primary insomnia -Melatonin OTC 4. tobacco use- vaping Do not smoke. Nicotine and other chemicals in cigarettes and cigars can cause lung damage. Ask your healthcare provider for information if you currently smoke and need help to quit. E-cigarettes or smokeless tobacco still contain nicotine. Talk to your healthcare provider before you use these products. education on decrease to stopping nicotine products and stop smoking hotline given Smoking Education Do not smoke. Nicotine and other chemicals in cigarettes and cigars can cause lung damage. Ask your healthcare provider for information if you currently smoke and need help to quit. E-cigarettes or smokeless tobacco still contain nicotine. Talk to your healthcare provider before you use these products. education on decrease to stopping nicotine products and stop smoking hotline given -Quit - Yes [place] Tobacco Quitline Call a Smoking Quitline The [employer] [place]'s Smoking Quitline, (2-763-78H-QUIT) Smokefree.gov, which connects you with your State's Quitline, (5-493-HOWJYTH) [facility] Smoking Quitline, (3-795-QAMETDF 5. elevted blood pressure educated on healthy b/p 120/80 monitor b/p at home refer to PCP, Urgent care/ER heart healthy diet and excise limit salt intake limit soda intake and caffiene increase water 6. Long-term drug therapy - NO CONTROL SUBTANCE WITH CANNABIS FROM [facility] - reported not using cannabis hx recovery 10/07/2024 Other shelter (current) drug therapy (ICD-10 - Z79.899) Medication Refill: Care Instructions material was published 1. depression- reported having anxiety with menopausal and on Estrogen and life situation -Wellbutrin XL 150 mg daily Sertraline 200 mg daily for depression and anxiety labs with EPIDEMIOLOGIST had thyroid checked [facility] educated on light box for seasonal effective d/o educated on light box therapy and excise- Medication Management and Follow-Up- Plan:- Schedule follow-up appointments every 2-3 months to monitor the patient's response to the medication regimen.- Reinforce the importance of avoiding recreational drug use due to potential neurotoxicity and interactions with prescribed medications. 2. Generalized anxiety disorder - Sertraline 200 mg daily for depression and anxiety Wellbutrin XL 150 mg daily Vistaril 10 mg daily to twice a day for anxiety as needed educated on all rx no control substance by DANELLE- educated on all medications, benefits, side effects and risk, and educated on depression, anxiety, and mood d/o and educated on compliance of medications, appointment's, continue therapy discussion with patient about course of treatment and patient instructions. 3. Primary insomnia -Melatonin OTC 4. tobacco use- vaping Do not smoke. Nicotine and other chemicals in cigarettes and cigars can cause lung damage. Ask your healthcare provider for information if you currently smoke and need help to quit. E-cigarettes or smokeless tobacco still contain nicotine. Talk to your healthcare provider before you use these products. education on decrease to stopping nicotine products and stop smoking hotline given Smoking Education Do not smoke. Nicotine and other chemicals in cigarettes and cigars can cause lung damage. Ask your healthcare provider for information if you currently smoke and need help to quit. E-cigarettes or smokeless tobacco still contain nicotine. Talk to your healthcare provider before you use these products. education on decrease to stopping nicotine products and stop smoking hotline given -Quit - Yes [place] Tobacco Quitline Call a Smoking Quitline The [employer] [place]'s Smoking Quitline, (1-857-11D-QUIT) Smokefree.gov, which connects you with your State's Quitline, (6-547-KSRSVXY) [facility] Smoking Quitline, (3-210-OFUBOEP 5. hx elevted blood pressure educated on healthy b/p 120/80 monitor b/p at home refer to PCP, Urgent care/ER heart healthy diet and excise limit salt intake limit soda intake and caffiene increase water 6. Long-term drug therapy - NO CONTROL SUBTANCE WITH CANNABIS FROM [facility] - reported not using cannabis hx recovery Plan Of Treatment Pending Test Test Name Order Date UDT 10/14/2023 Next Appt Details Provider Name:Marlen Ko , 02/03/2025 04:15:00 PM, [address], [facility] [address], [address], Insurance Providers Payer Name Payer Address Payer Phone Subscriber Number Group Number Insured Name Patient Relationship to Insured Coverage Start Date Coverage End Date [employer] [address] [place] [phone] [id number] COLLEEN COFFMAN Self - patient is the insured Medical (General) History Medical History History ICD Code Problems: Bipolar II disorder Generalized anxiety disorder Long-term drug therapy Moderate mixed bipolar I disorder Primary insomnia Recurrent major depressive episodes, mil d , Surgical History Surgery Date(Month/Year) Total replacement of hip ([id number]) Tonsilectomy/adenoids 06/16/1983 Other 03/03/2020
== END 2024-11-02 16:23 | disposition home or self-care (01) ==
LOC: ANHFOHIMG 16:23
PROVIDERS: PCP Family Medicine; Visit Provider Obstetrics & Gynecology
DX: Z12.31 Encounter for screening mammogram for malignant neoplasm of breast (principal)
CPT/HCPCS: 77063; 77067